=== PATIENT | male | born 1945 | race Caucasian/White ===

== ENCOUNTER 2016-03-23 10:45 | Day surgery (SDC) | payer MEDICARE, OTHER ==
[~2016-03-23] VITALS: Ht 177.8 cm; Wt 63.5 kg
[~2016-03-23 10:45] MED LIST: AMLO2.5T PO; AUGMENTIN 875-1 EACH PO; CARVEDILOL6.25 MG PO; CEFDINIR300 M1 PO; HYCODAN 5MG. TAB5 MG PO; HYDROCHLOROTH12.5 M1 PO; KEFLEX 500MG.500 MG PO; LISINOPRIL 5MG T5 MG PO; METOPROLOL SUCC25 M1 PO; TIOTROPIUM BRO18 MCG IH; VICODIN 5/500 T1 TAB PO
[2016-03-23 11:21] LABS: HEMOGLOBIN 15.7 g/dL (14.1-18.0); LYMPH # 3.9 K/mm3 (0.7-4.5); LYMPH % 38.3 % (10-50)
[2016-03-23 11:25] LABS: BUN 9 mg/dL (7-18)
[2016-03-23 11:27] LABS: GFR (ESTIMATED) 96 ML/MIN (>60)
--- NOTE | 2016-03-23 11:59 | Operative Note ---
Endoscopy Report Date: 03/23/16 Preoperative diagnosis: Abdominal bloating, weight loss Procedure Type of procedure: Total colonoscopy to terminal ileum with snare polypectomy Indications: 70-year-old white male. Referred from Dr. Dale Chan for colonoscopy. He's never had previous colonoscopy. 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 [place] two-month history of "stomach issues ". He often feels full with early satiety. He has a sensation like he has eaten a large meal. He has diminished appetite. The patient undergo CT scan of the abdomen and pelvis which revealed no acute findings. Plan was made to proceed with colonoscopy. Consent was obtained and patient was taken to same-day surgery endoscopy procedure room. He was positioned in a lateral decubitus position. Adequate intravenous sedation was achieved. Variable stiffness Olympus colonoscope was inserted via the anus and advanced to the cecum with some minor difficulty. He did have a floppy tortuous colon. Ileocecal valve and appendiceal orifice were clearly identified. Colonoscope was advanced into the terminal ileum which appeared grossly normal. In the cecum in the periappendiceal location there was a sessile somewhat irregular polyp removed with hot snare. Colonoscope was withdrawn through the colon with careful surveillance carried out. Within the rectum retroflexion was performed which revealed nonpathologic internal hemorrhoids. Colonoscope was withdrawn. Findings: Cecal polyp Tortuous floppy colon Recommendations: Likely plan for follow-up colonoscopy in 5 years pending the pathology. It is possible he may have some degree of gastroparesis. Consideration may be given for gastric emptying scan. at [id number]
[2016-03-23 12:52] VITALS: BP 126/70
== END 2016-03-23 12:35 | disposition home or self-care (01) ==
LOC: SDC 10:45
PROVIDERS: Surgery
PROC: 0DBH8ZX Excision of Cecum, Via Natural or Artificial Opening Endoscopic, Diagnostic (ICD-10-PCS; principal; 2016-03-23 11:00)
DX: R14.0 Abdominal distension (gaseous) (principal); R63.4 Abnormal weight loss; D12.0 Benign neoplasm of cecum

== ENCOUNTER 2016-09-13 16:23 | Inpatient (IN) | payer MEDICARE, OTHER ==
[~2016-09-13] VITALS: Ht 177.8 cm; Wt 55.1 kg
[2016-09-13 16:38] VITALS: BP 146/86
[2016-09-13 16:53] LABS: HEMOGLOBIN 14.7 g/dL (14.1-18.0); LYMPH # 4.1 K/mm3 (0.7-4.5); LYMPH % 33.3 % (10-50)
[2016-09-13 17:02] LABS: URINE BILIRUBIN - DIPSTICK NEGATIVE (NEG); URINE BLOOD TRACE-INTACT (NEG)
--- NOTE | 2016-09-13 17:13 | Emergency Room Report ---
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 N Clinical Suspician of Infection? N Mental Status: 1 - Regular (Normal Baseline) Sepsis Risk:Low Sepsis Risk Have you (or family members/close friends) recently traveled outside the [place]? N If Yes, where/when: Have you had exposure to infectious disease within the past month? TB? Other? Specify: Source patient, RN notes reviewed ALLERGIES Coded Allergies: No Known Allergies (09/13/16) Home Medications Active Scripts Metoprolol Succinate Xl (Metoprolol ER 25MG) 25 MG PO BID #60 TAB Ref 4 Prov: 01/25/15 Hydrochlorothiazide (Hydrochlorothiazide 12.5MG) 12.5 MG PO DAILY #30 CAP Ref 4 Prov: 01/25/15 Tiotropium [place] (Tiotropium [place] 18MCG/Cap Handihaler) 18 MCG IH DAILY #30 INH Ref 4 Prov: 01/25/15 Amlodipine Besylate 2.5 MG PO DAILY #30 TAB Ref 4 Prov: 01/25/15 HYDROCODONE BIT/HOMATROP ME-BR ([place] 5-1.5 MG Tablet) 5 MG PO QIDP PRN cough #15 TAB Prov: 01/25/15 Amoxicillin/Potassium Clav (Augmentin 875-125 Tablet) 1 EACH PO BID #20 TAB Prov: 04/11/15 (Maria Teresa DISLA,Jasmine) History Medical History General CAD? Yes Angina: No [place]: No Hypertension? Yes Hyperlipidemia? Yes CHF? No DVT? No PE? No COPD? Yes Asthma? No Anemia? No GERD? No Gastric ulcers? No GI Bleed? No Hernia? Yes Thyroid Problems? No Hypothyroidism? No CVA? Yes Seizures? No Diabetes? Yes Insulin Dependent: No Insulin Pump: No Home FSBS? No Renal Insuffiency? No End Stage Renal Disease? No UTI? No Stones? No BPH? No GB Disease: No Nephritic Syndrome? No Asplenia? No Hepatitis? No Sickle Cell Disease? No Arthritis? No Migraines? No Cataracts? No Glaucoma? No MRSA? No HIV? No TB? No Anxiety? No Depression? No Cancer? No More? No Immunization Hx Ped.Immunizations UTD Yes DT/Tetanus 04/22/10 Flu Refused Pneumonia Refuses Surgical Hx Previous Surgery?Y R RENAL ARTERIAL STENOSIS INGUINAL HERNIA X2 BACK SX FINGER REATTACHMENT HERNIA REPAIR Family History Family Hx Diabetes No CAD No Hypertension No Hyperlipidemia No Cancer Yes TB No Social History Smoking Hx Smoker: Current Some Day Smoker Tobacco: Yes Type Cigarettes Packs/day < 1 Pack Alcohol Alcohol: No (Maria Teresa DISLA,Jasmine) Review of Systems All Other Systems Reviewed and Negative (Jasmine Morel MD) Physical Exam Vital Signs Vital Signs Date Time Temp Pulse Resp B/P Pulse O2 O2 Flow FiO2 Ox Delivery Rate 09/13 2050 89 18 138/68 94 2 09/14 2019 87 18 130/75 94 2 09/13 1928 101 20 164/74 91 09/13 1852 92 20 148/77 87 09/13 1815 94 16 151/83 94 09/13 1638 97.8 98 18 146/86 95 General Appearance normal appearance, WD/WN, no apparent distress Respiratory Status No: respiratory distress. Lung Sounds bilateral: rhonchi. 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 No Results/Orders Laboratory Tests 09/13/16 1901: ABG pH 7.45, ABG pCO2 (Temp Corrct 45.2 H, ABG pO2 (Temp Correct 51.8 L, ABG HCO3 30.5 H, ABG Total CO2 31.9 H, ABG O2 Sat (Calculated) 86.8 *L, ABG Base Excess 6.5 H, Jr Test ACCEPTABLE 09/13/16 1655: Urine Color YELLOW, Urine Appearance CLEAR, Urine pH 6.0, Ur Specific [place] 1.020, Urine Protein NEGATIVE, Urine Ketones NEGATIVE, Urine Blood TRACE-INTACT, Urine Nitrate NEGATIVE, Urine Bilirubin NEGATIVE, Urine Urobilinogen 0.2, Ur Leukocyte Esterase NEGATIVE, Urine RBC OCC, Urine WBC OCC, Urine Bacteria 2+, Hyaline Casts OCC, Urine Mucus 1+, Urine Glucose NEGATIVE 09/13/16 1649: POC Glucose 162 H 09/13/16 1640: B-Natriuretic Peptide 13 09/13/16 1640: Sodium 139, Potassium 3.4 L, Chloride 99, Carbon Dioxide 33 H, BUN 14, Creatinine 0.9, Estimated Creat Clear 76, Estimated GFR (MDRD) 84, Glucose 144 H, Calcium 9.2, Total Bilirubin 0.2, AST 7 L, ALT 18, Alkaline Phosphatase 145 H, Creatine Kinase 55, CK-MB (CK-2) Rel Index 0.9, CK and CKMB Interp < 0.5, Troponin I < 0.02, Total Protein 7.3, Albumin 3.1 L, Globulin 4.2 H, Albumin/ Globulin Ratio 0.7 L, D-Dimer 639 *H, WBC 12.2 H, RBC 5.10, Hgb 14.7, Hct 44.7 , MCV 87.5, RDW 13.6, Plt Count 644 H, MPV 7.0 L, Gran % 58.6, Gran # 7.2, Lymphocytes % 33.3, Monocytes % 5.2, Eosinophils % 2.4, Basophils % 0.5, Lymphocytes # 4.1, Monocytes # 0.6, Eosinophils # 0.3, Basophils # 0.1, PUBS MCHC 32.8, MCH 28.7 Current Medication Orders Sig/Fredy Start time Last Medication Dose Route Stop Time Status Admin Iopamidol 60 ML ONCE ONE 09/13 2029 UNV 09/13 IV 09/13 Sodium Chloride 40 ML ONCE ONE 09/13 2029 UNV 09/13 IV 09/13 Sodium Chloride 10 ML PRN PRN 09/13 1645 AC IV 09/14 1642 Orders Procedure Date/time Status DIET-NOTHING BY MOUTH 09/14 B Active DIET-NOTHING BY MOUTH 09/13 D Complete CULTURE, BLOOD 09/13 2110 Active LACTIC ACID 09/13 2110 Active CTA-CHEST 09/[address] CHEST W/PE PROTOCOL REQ 09/13 192 Complete D-DIMER 09/13 1844 Complete ARTERIAL BLOOD GAS REQUEST 09/[address] HEAD W/O CONTRAST 09/[address] ABD & PELVIS W/O CONTRAST 09/13 1655 Active CULTURE, URINE 09/13 1655 Active FINGERSTICK BLOOD SUGAR 09/13 1649 Complete 12 LEAD EKG-REYNOLD (INITIAL) 09/13 164 Active ELECTROCARDIOGRAM REQUEST 09/13 1644 Active URINALYSIS/COMPLETE 09/13 1644 Complete BRAIN NATRIURETIC PEPTIDE 09/[address] HEAD REQ 09/[address] ABD/PELVIS REQ 09/13 1643 Complete CHEST-AP VIEW ONLY 09/13 164 Active IV SALINE LOCK 09/13 164 Active CBC WITH AUTO DIFF 09/13 164 Complete CARDIAC ENZYMES 09/13 164 Complete CHEM 12 PROFILE 09/13 164 Complete XRAY/CT/US XRAY/CT/US CT head CT interpretation by discussed w/radiologist Time results known: 1843 CT Results normal/NAD, Mild to moderate ventriculomegaly...can not rule out NPH (Jasmine Morel MD) Departure Departure Time of Disposition 1950 Disposition Still a Patient Condition STABLE Additional Instructions Discussed with Dr. Chan and he wants to get CTA Chest to rule out PE and his D -dimer is >[address] Ardon after CTA chest comes back Discharge Counseling Counseled pt/family regarding diagnosis, test results, follow up needs ED Critical Care Critical Care No If Critical Care minutes are documented, the time involved in the performance of seperately reportable procedures was not counted toward critical care time documented. I directly delivered medical care to this critically ill and/or injured patient. Timely evaluation and treatment was necessary to address the significant organ system(s) dysfunction present in this patient. (Jasmine Morel MD) Departure Clinical Impression Primary Impression: Acute and chronic respiratory failure with hypoxia Secondary Impressions: CAP (community acquired pneumonia) COPD (chronic obstructive pulmonary disease) Qualifiers: COPD type: COPD with acute lower respiratory infection Qualified Code: J44.0 - Chronic obstructive pulmonary disease with acute lower respiratory infection Referrals Ellie Chan MD (Family) discussed with dr chan (Bela Ardon MD) at 1953 at 2116
[2016-09-13 17:14] LABS: BUN 14 mg/dL (7-18)
[2016-09-13 17:15] LABS: GFR (ESTIMATED) 84 ML/MIN (>60)
[2016-09-13 19:05] LABS: ARTERIAL ABE 6.5 MMOL/L (-2.4-+2.3); ARTERIAL PO2 51.8 MMHG (80-100); ARTERIAL TCO2 31.9 MMOL/L (23-27)
[2016-09-13 19:06] LABS: ALLEN'S TEST ACCEPTABLE; OXYGEN ROOM AIR
--- OUTSIDE RECORDS SUMMARY | 2016-09-13 21:27 | External Medical Summary Rpt ---
Author Author , Organization [employer] Address Unknown Phone Unavailable Purpose Continuity of Care Document - through 2016 Problems Code Diagnosis DOS Provider Status J96.21 ACUTE AND CHRONIC RESPIRATORY FAILURE WITH HYPOXIA
--- OUTSIDE RECORDS SUMMARY | 2016-09-13 21:27 | External Medical Summary Rpt ---
Demographics Preferred Language German Marital Status Unknown Lutheran Affiliation Unknown Race Unknown Ethnic Group Unknown Author Author , Organization [employer] Address Unknown Phone Unavailable Purpose Continuity of Care Document - through 2016 Immunization No patient found.
--- OUTSIDE RECORDS SUMMARY | 2016-09-13 21:27 | External Medical Summary Rpt ---
Author Author [employer] Organization [employer] Address Unknown Phone Unavailable Purpose Continuity of Care Document - through 2016
--- OUTSIDE RECORDS SUMMARY | 2016-09-13 21:27 | External Medical Summary Rpt ---
Demographics Preferred Language Luxembourger Marital Status Unknown Anabaptism Affiliation Unknown Race Unknown Ethnic Group Unknown Author Author , Organization [employer] Address Unknown Phone Unavailable Purpose Continuity of Care Document - through 2016 Immunization No patient found.
--- NOTE | 2016-09-13 22:05 | RADIOLOGY REPORT PS360 ---
CHEST-AP VIEW ONLY HISTORY: Shortness of breath WEAKNESS ORDERING PHYSICIAN: Bela Ardon MD PATIENT AGE: 70 years COMPARISON: 01/26/2016 FINDINGS: Normal heart size. Pulmonary arterial tree is somewhat prominent and may be related to pulmonary arterial hypertension. There is mild hyperinflation with attenuation of the peripheral pulmonary vessels consistent with COPD. There is some mild nodularity in the right lower lung zone nonspecific. No effusions. No acute bony anomalies. IMPRESSION: 1. COPD with suspected pulmonary arterial hypertension. 2. Nonspecific parenchymal opacity right infrahilar region possibly related to pneumonia. Consider chest CT for further evaluation. Pulmonary nodule not excluded.
[2016-09-13 22:12] VITALS: BP 166/80
--- NOTE | 2016-09-13 22:21 | RADIOLOGY REPORT PS360 ---
CT HEAD W/O CONTRAST HISTORY: Weakness WEAKNESS ORDERING PHYSICIAN: Bela Ardon MD PATIENT AGE: 70 years COMPARISON: 04/09/2015 TECHNIQUE: Axial images obtained without contrast. Brain and bone windows reviewed. FINDINGS: No midline shift, mass effect, intracranial hemorrhage, hydrocephalus, or extra-axial fluid collection is evident. There is mild generalized atrophy with patchy chronic white matter microvascular ischemic changes. There are some periventricular encephalomalacia changes in the left parietal lobe unchanged. The calvarium has an unremarkable appearance. No mastoid effusion. Mild mucosal thickening left sphenoid sinus. IMPRESSION: 1. Atrophy with chronic ischemic changes. 2. No acute intracranial pathology.
[2016-09-13 22:26] VITALS: BP 166/80
[2016-09-13] MEDS ORDERED: ATORVASTATIN CA40 MG PO (22:36)
[2016-09-13] MEDS ORDERED: METFORMIN 500M500 M1 PO (22:38)
[2016-09-13] MEDS ORDERED: OMEPRAZOLE40 MG PO (22:38)
[2016-09-13] MEDS ORDERED: GABAPENTIN300 M1 PO (22:39)
[2016-09-13] MEDS ORDERED: AMLO5TAB PO (22:39)
[2016-09-13] MEDS ORDERED: PROBIOTIC1 EAC5 PO (22:40)
[2016-09-13] MEDS ORDERED: ASPIRIN 325MG325 MG PO (22:41)
[2016-09-13] MEDS ORDERED: COQ-10100 MG PO (22:42)
[2016-09-14] VITALS (7 sets, daily range): BP systolic 119–161; BP diastolic 53–64
[2016-09-14 06:52] LABS: HEMOGLOBIN 13.6 g/dL (14.1-18.0); LYMPH # 1.6 K/mm3 (0.7-4.5); LYMPH % 17.5 % (10-50)
--- NOTE | 2016-09-14 06:59 | PHARMACY CLINIC NOTE ---
Patient Demographics Patient Demographics Admission date: 09/13/16 Date: 09/14/16 Time: 0659 Allergies Coded Allergies: No Known Allergies (09/13/16) HEIGHT- FT: 5 IN: 10.00 K.112 VTE General Information Labs: Laboratory Tests 09/13 1640 Hematology Hgb (14.1 - 18.0 g/dL) 14.7 Hct (42.0 - 52.0 %) 44.7 Plt Count (142 - 424 K/mm3) 644 H Disclaimer The following section includes nursing documentation that has been pulled in for pharmacy review. Patient's VTE score: 1 Patient's VTE Risk: VERY LOW RISK Clinical trial participant? No VTE prophylaxis NQF [id number] VTE prophylaxis ordered? Yes Type of prophylaxis/treatment: RANGEL at 0659
--- NOTE | 2016-09-14 08:16 | RADIOLOGY REPORT PS360 ---
CT ABD PELVIS W/O CONTRAST CLINICAL INDICATION: Generalized abdominal pain WEAKNESS ORDERING PHYSICIAN: Bela Ardon MD PATIENT AGE: 70 years COMPARISON: 01/30/2016 TECHNIQUE: Axial images obtained with sagittal and coronal reformats. PROCEDURE: Oral Contrast: None IV Contrast: None . FINDINGS: Lower thorax: Please see chest CT report for further description of lower chest Abdomen: The liver, spleen, adrenal glands, pancreas, gallbladder, and kidneys have an unremarkable unenhanced CT appearance. There is a moderate amount retained colonic feces. No intestinal obstruction or free air is evident. There are few scattered small bowel abscess which appears somewhat thickened in the pelvis. Enteritis is considered. Chronic changes present in the right inguinal region not significantly changed and may be due to prior surgery. Small area of sclerosis involves the left ilium at the SI joint on the left. IMPRESSION: 1. No acute intra-abdominal or pelvic pathology apparent. 2. Nonacute findings as described above
--- NOTE | 2016-09-14 08:25 | RADIOLOGY REPORT PS360 ---
CTA-CHEST HISTORY: Shortness of breath, elevated d-dimer SOA ORDERING PHYSICIAN: Bela Ardon MD PATIENT AGE: 70 years TECHNIQUE: Helical acquisition obtained following the bolus administration of 60 mL of Isovue 370 followed by a saline bolus. Axial, sagittal, and coronal reformatted images are generated and reviewed. COMPARISON: 01/20/2015 FINDINGS: No evidence of pulmonary embolus. No evidence of aortic aneurysm or dissection. There is intimal thickening coronary artery calcifications are present. Normal heart size. No obvious pericardial effusion. There are moderate centrilobular emphysematous changes with hyperinflation and bronchial thickening. There are multiple new reticulonodular spiculated nodular airspace opacity scattered through the right lung involving both right upper, right right middle, and right lower lobe. A new coalescent masslike density is noted in the posterior medial right lung base abutting the spine measuring 3.8 cm. This has developed since the previous exam. This could be due to densely opacified lung. Pulmonary mass/neoplasm is not excluded. No effusions. Few scattered small lymph nodes are present in the mediastinum slightly prominent measuring up to 1.3 x 1.2 cm in the left paratracheal region. IMPRESSION: 1. No obvious pulmonary metastases or aortic aneurysm or dissection. 2. Multiple new reticular airspace opacities in the right lung including colitis masslike lesion in the right lower lobe medially. This is probably related to pneumonia. Neoplasm however is not excluded. Therefore, follow-up is recommended following adequate treatment for pneumonia. 3. Emphysema. 4. Coronary artery disease
--- NOTE | 2016-09-14 08:53 | HISTORY AND PHYSICAL REPORT ---
See Addendum History and Physical ([facility]) Date of admission: 09/13/16 Chief complaint: Shortness of air History: History of Present Illness: Mr. Lin is a 70 year old white male with a history of COPD, CVA, Type 2 DM, HTN, and HLP who presented to [facility] ED with progressive shortness of breath, impaired cognition, and headache. Due to his previous CVA, his family felt he needed further evaluation and was brought to the ED. He had not been eating or drinking well for the past 3 months. Patient was noted to have been treated at [facility] and urgent care for Bronchitis with Amoxicillin and Zithromax and 2 courses of steroids. He denies fever, cough, and chest pain. Evaluation in the ED included a CTA due to elevated D-Dimer- negative for PE but showed a possible atypical pneumonia. Due to his failure with outpatient treatment, he was admitted for further evaluation and treatment. This AM he reports he feels somewhat better. He was able to get some sleep and ate most of his breakfast. He has ambulated and voided. He denies cough, headache, or impaired cognition at this time. He remains afebrile. Past Medical History: Medical History: CAD? Yes Angina: No [place]: No Hypertension? Yes Hyperlipidemia? Yes CHF? No DVT? No PE? No COPD? Yes Asthma? No Anemia? No GERD? No Gastric ulcers? No GI Bleed? No Hernia? Yes Thyroid Problems? No Hypothyroidism? No CVA? Yes Seizures? No Diabetes? Yes Insulin Dependent: No Insulin Pump: No Home FSBS? No Renal Insuffiency? No UTI? No Stones? No BPH? No GB Disease: No Nephritic Syndrome? No Asplenia? No Hepatitis? No Sickle Cell Disease? No Arthritis? No Migraines? No Cataracts? No Glaucoma? No MRSA? No HIV? No TB? No Anxiety? No Depression? Yes Cancer? No More? No Surgical history: Previous Surgery?Y R RENAL ARTERIAL STENOSIS INGUINAL HERNIA X2 BACK SX FINGER REATTACHMENT HERNIA REPAIR Medications: Active Scripts Hydrochlorothiazide (Hydrochlorothiazide 12.5MG) 12.5 MG PO DAILY #30 CAP Ref 4 Prov: 01/25/15 Reported Medications Gabapentin 300 MG PO TID #90 CAPSULE Atorvastatin Calcium 40 MG PO DAILY #30 Omeprazole (Omeprazole 40MG) 40 MG PO DAILY #30 Metformin HCl (Metformin) 500 MG PO BID #60 Amlodipine Besylate (Amlodipine) 5 MG PO DAILY #30 Bacillus Coagulans (Probiotic) 1 EACH PO DAILY ASPIRIN (Aspirin 325MG) 325 MG PO DAILY Ubidecarenone (Coq-10) 100 MG PO DAILY Allergies: Coded Allergies: No Known Allergies (09/13/16) Family History: Family history: Postive for: DM, cancer. Negative for: stroke. Additional family history: All brothers and sisters have DM. 2 sisters have breast ca, mother had colon ca , father had stomach ca Social History: Smoking Hx Tobacco: Yes Smoker: Current Some Day Smoker (Pt has been cutting back) Type: Cigarettes Packs/day: < 1 Pack Are you exposed to second hand Yes Alcohol: Alcohol: No Hx of Drug Use: Drug Use? No Patien't marital status is: Patient's support system is: good Review of Systems: Patient unresponsive? No Constitutional Positive for: recent weight loss. No: chills, fatigue. ENT No: ear ache, mouth pain, sore throat. Cardiovascular Positive for: chest pain (Brief intermittant sharp CP). No: edema, palpitations. Respiratory Positive for: shortness of air, pneumonia. No: non-productive, productive cough (sputum), wheezing. GI Positive for: abdominal pain, anorexia. No: GERD, constipation, diarrhea, hematemeis, hematochezia, melena, nausea, vomitting. (male) No: frequency. Skin No: diaphoresis, swelling. Neurological Positive for: gait problem, numbness (Residual parathesia/ gait- CVA). No: bowel dysfunction, confusion, dizziness, seizure, slurred speech, unable to speak, syncope. Musculoskeletal No: myalgias. Psychiatric Positive for: depression. Physical Exam: Vital signs: 1ST Vital Signs Result Date Time Pulse Ox 95 09/13 1638 B/P 146/86 09/13 1638 Temp 97.8 09/13 1638 Pulse 98 09/13 1638 Resp 18 09/13 1638 O2 Flow Rate 2 09/14 2019 O2 Delivery ROOM AIR 09/13 2212 Exam: General appearance: alert, face symmetric, no acute distress, thin Eyes: anicteric, conjunctiva clear, PERRLA ENT: mucous membranes moist (poor dentition ) Neck: normal inspection, non-tender, no carotid bruit, no JVD, full range of motion, lymphadenopathy (absent), thyroid (normal) Cardiovascular: no ectopics, regular rate & rhythm, no murmur, normal peripheral pulses Respiratory: no respiratory distress, trachea midline, diminished breath sounds (posterior), Breath sounds diminished throughout- worse on left side. Fine crackles bilaterally in the bases. No wheezing or rhonchi ABD: non-distended, no rebound, soft, no tenderness, no guarding, no organomegaly, no palpable mass, bowel sounds present, flat Extremities: normal capillary refill, no peripheral edema, warm, pedal pulses (normal), no calf tenderness, decreased sensation on the right lower extremity Skin: dry, intact, normal color Neuro: alert, normal mood/affect, oriented Lab data: Labs: Laboratory Tests 09/14/16 0635: Sodium 140, Potassium 3.7, Chloride 102, Carbon Dioxide 31, BUN 15, Creatinine 0.8, Estimated Creat Clear 69, Estimated GFR (MDRD) 96, Glucose 246 H, Calcium 9.1, WBC 9.1, RBC 4.69, Hgb 13.6 L, Hct 40.9 L, MCV 87.2, RDW 13.5, Plt Count 577 H, MPV 6.9 L, Gran % 81.5 H, Gran # 7.4, Lymphocytes % 17.5, Monocytes % 0.7 L, Eosinophils % 0.2, Basophils % 0.1, Lymphocytes # 1.6, Monocytes # 0.1, Eosinophils # 0.0, Basophils # 0.0, PUBS MCHC 33.3, MCH 29.0 09/14/16 0628: POC Glucose 239 H 09/13/16 2125: Lactic Acid 1.0 09/13/16 1901: ABG pH 7.45, ABG pCO2 (Temp Corrct 45.2 H, ABG pO2 (Temp Correct 51.8 L, ABG HCO3 30.5 H, ABG Total CO2 31.9 H, ABG O2 Sat (Calculated) 86.8 *L, ABG Base Excess 6.5 H, Jr Test ACCEPTABLE 09/13/16 1655: Urine Color YELLOW, Urine Appearance CLEAR, Urine pH 6.0, Ur Specific [place] 1.020, Urine Protein NEGATIVE, Urine Ketones NEGATIVE, Urine Blood TRACE-INTACT, Urine Nitrate NEGATIVE, Urine Bilirubin NEGATIVE, Urine Urobilinogen 0.2, Ur Leukocyte Esterase NEGATIVE, Urine RBC OCC, Urine WBC OCC, Urine Bacteria 2+, Hyaline Casts OCC, Urine Mucus 1+, Urine Glucose NEGATIVE 09/13/16 1649: POC Glucose 162 H 09/13/16 1640: B-Natriuretic Peptide 13 09/13/16 1640: Sodium 139, Potassium 3.4 L, Chloride 99, Carbon Dioxide 33 H, BUN 14, Creatinine 0.9, Estimated Creat Clear 76, Estimated GFR (MDRD) 84, Glucose 144 H, Calcium 9.2, Total Bilirubin 0.2, AST 7 L, ALT 18, Alkaline Phosphatase 145 H, Creatine Kinase 55, CK-MB (CK-2) Rel Index 0.9, CK and CKMB Interp < 0.5, Troponin I < 0.02, Total Protein 7.3, Albumin 3.1 L, Globulin 4.2 H, Albumin/ Globulin Ratio 0.7 L, D-Dimer 639 *H, WBC 12.2 H, RBC 5.10, Hgb 14.7, Hct 44.7 , MCV 87.5, RDW 13.6, Plt Count 644 H, MPV 7.0 L, Gran % 58.6, Gran # 7.2, Lymphocytes % 33.3, Monocytes % 5.2, Eosinophils % 2.4, Basophils % 0.5, Lymphocytes # 4.1, Monocytes # 0.6, Eosinophils # 0.3, Basophils # 0.1, PUBS MCHC 32.8, MCH 28.7 Microbiology 09/13 2124 BLOOD: Anaerobic Blood Culture - RECD 09/13 2124 BLOOD: Aerobic Blood Culture - RECD 09/13 2124 BLOOD: Anaerobic Blood Culture - RECD 09/13 2124 BLOOD: Aerobic Blood Culture - RECD 09/13 1654 URINE CC: Urine Culture - RES Radiology results: Results: CTA: IMPRESSION: 1. No obvious pulmonary metastases or aortic aneurysm or dissection. 2. Multiple new reticular airspace opacities in the right lung including colitis masslike lesion in the right lower lobe medially. This is probably related to pneumonia. Neoplasm however is not excluded. Therefore, follow-up is recommended following adequate treatment for pneumonia. 3. Emphysema. 4. Coronary artery disease CT ABD: IMPRESSION: 1. No acute intra-abdominal or pelvic pathology apparent. 2. Nonacute findings as described above CT Head: IMPRESSION: 1. Atrophy with chronic ischemic changes. 2. No acute intracranial pathology. CXR IMPRESSION: 1. COPD with suspected pulmonary arterial hypertension. 2. Nonspecific parenchymal opacity right infrahilar region possibly related to pneumonia. Consider chest CT for further evaluation. Pulmonary nodule not excluded. Diagnosis(es): 1. Old cerebrovascular accident (CVA) without late effect Status: Chronic 2. COPD exacerbation Status: Acute 3. Hypertension Status: Chronic 4. Headache Status: Resolved 5. CAP (community acquired pneumonia) Status: Acute 6. COPD (chronic obstructive pulmonary disease) Status: Chronic 7. Diabetes mellitus Plan: Continue abx, nebs, steroids, sliding scale insulin, and PRN O2. Will restart some of his home meds. Repeat labs in AM. at 0853 at 0826
[2016-09-14] MEDS ORDERED: ACETAMINOPHEN500 M3 PO (10:36)
[2016-09-14] MEDS ORDERED: HYDROCHLOROTH12.5 M1 PO (10:40)
[2016-09-15] VITALS (8 sets, daily range): BP systolic 120–145; BP diastolic 53–71
[2016-09-15 07:16] LABS: HEMOGLOBIN 13.1 g/dL (14.1-18.0); LYMPH # 2.3 K/mm3 (0.7-4.5); LYMPH % 8.6 % (10-50)
[2016-09-15 07:46] LABS: NEUTROPHILS 84 % (42-76)
--- NOTE | 2016-09-15 09:20 | ACUTE CARE PROGRESS NOTE (QUA) ---
Progress Notes Subjective Date 09/15/16 Time 0915 Note Patient is feeling the same this AM. He denies CP and SOB. He has minimal cough. He is eating as usual. He slept about 5 hours; he has been OOB without problems.. WBC has increased to 26.5 this AM. This is felt to be due to the [facility] Objective Findings Laboratory Tests 09/15/16 0637: POC Glucose 237 H 09/15/16 0630: Sodium 142, Potassium 4.2, Chloride 105, Carbon Dioxide 33 H, BUN 14, Creatinine 0.7 L, Estimated Creat Clear 79, Estimated GFR (MDRD) 112, Glucose 230 H, Calcium 9.3, WBC 26.5 *H, RBC 4.55 L, Hgb 13.1 L, Hct 40.5 L, MCV 88.9, RDW 13.7, Plt Count 609 H, MPV 7.0 L, Gran % 88.1 H, Gran # 23.3 H, Total Counted 100, Lymphocytes % 8.6 L, Monocytes % 3.1, Eosinophils % 0.1, Basophils % 0.1, Neutrophils 84 H, Band Neutrophils 4, Lymphocytes (Manual) 8 L, Lymphocytes # 2.3, Monocytes (Manual) 2, Monocytes # 0.8, Eosinophils # 0.0, Basophils # 0.0, Atypical Lymphocytes 2, Platelet Estimate MOD INCREASE, PUBS MCHC 32.4, MCH 28.8 09/14/16 2039: POC Glucose 328 *H 09/14/16 1659: POC Glucose 312 *H 09/14/16 1214: POC Glucose 277 H Vital Signs Date Time Temp Pulse Resp B/P Pulse O2 O2 Flow FiO2 Ox Delivery Rate 09/15 0804 98.6 81 16 121/71 95 09/15 0800 97.9 69 18 120/56 97 ROOM AIR 09/15 0553 2 09/15 0553 95 ROOM AIR 09/15 0400 98.6 81 16 121/71 91 ROOM AIR 09/15 0322 93 ROOM AIR 09/15 0030 97.5 75 18 126/65 92 ROOM AIR 09/14 2048 97.6 89 16 161/63 92 09/144 2 09/14 2004 97.6 89 16 161/63 92 ROOM AIR 09/14 1738 97.6 69 16 119/54 97 ROOM AIR 09/14 1225 98.4 70 16 123/62 92 ROOM AIR 09/14 1014 2 09/14 0959 98.0 92 16 136/53 96 2 Current Medications Acetaminophen 0 .STK-MED ONE PO (DC) Azithromycin 500 MG 2100 IV Sodium Chloride 250 ML Patient Own Medication 1 UNIT QHS PO Insulin Human [rDNA origin] 0 .STK-MED ONE SC (DC) Insulin Human [rDNA origin] 0 .STK-MED ONE SC (DC) Ceftriaxone Sodium 1 GM 1300 IV Sodium Chloride 50 ML Insulin Human [rDNA origin] 0 .STK-MED ONE SC (DC) Sodium Chloride 10 ML PRN PRN IV Patient Own Medication 1 UNIT TID PO Patient Own Medication 1 UNIT DAILY PO Patient Own Medication 1 UNIT DAILY PO Tuberculin 0 .STK-MED ONE .ROUTE (DC) Amlodipine Besylate 2.5 MG DAILY PO (DC) Aspirin 325 MG DAILY PO (DC) Atorvastatin Calcium 40 MG DAILY PO (DC) Gabapentin 300 MG TID PO (DC) Metoprolol Tartrate 25 MG BID PO Polyethylene Glycol 17 GM DAILY PO Diagnostic Test (Pha) 1 EACH W/MEALS&HS FS Insulin Human [rDNA origin] SEE ADMIN CRITERIA FOR LOW INTENSITY SS W/MEALS&HS SC Methylprednisolone Sodium Succinate 60 MG Q8 IV Albuterol 2.5 MG Q6H6 INH Acetaminophen 650 MG Q4HP PRN PO Nicotine 21 MG DAILYP PRN TD Ondansetron HCl 4 MG Q6HP PRN IV Sodium Chloride 1,000 ML .Q20H IV Sodium Chloride 10 ML PRN PRN IV (DC) 09/14 1500 09/14 2300 09/15 0700 Intake Total 420 180 Output Total Balance 420 180 Intake, Oral 420 180 Last VS-Temp:98.6 B/P:121/71 Pulse:81 Resp:16 SaO2:95 ROOM AIR Last weight lbs:121 oz:8 K.112 Method:Bed Scales Exam General appearance: alert, no acute distress, thin Cardiovascular: regular rate & rhythm Respiratory: diminished BS posteriorly with crackles on the left ABD: soft, no tenderness, bowel sounds present, flat Extremities: normal capillary refill, no peripheral edema Skin: dry, warm Neuro: alert, oriented Assessment/Plan Problem List 1. Old cerebrovascular accident (CVA) without late effect Status: Chronic 2. COPD exacerbation Status: Acute 3. Hypertension Status: Chronic 4. Headache Status: Resolved 5. CAP (community acquired pneumonia) Status: Acute 6. COPD (chronic obstructive pulmonary disease) Status: Chronic 7. Diabetes mellitus Patient condition Improving Plan: continue current care, will repeat CXR today; decrease steriods This inpt stay is expected to cross 2 MNs from start of care Yes at 0920
--- NOTE | 2016-09-15 11:26 | RADIOLOGY REPORT PS360 ---
CHEST(2 VIEWS-NOT PORTABLE) HISTORY: Shortness of breath, tobacco use, follow-up abnormal radiograph possible pneumonia ORDERING PHYSICIAN: Ellie Chan MD PATIENT AGE: 70 years COMPARISON: 09/13/2016 FINDINGS: The cardiomediastinal silhouette and pulmonary vascularity are within normal limits. Previously described patchy density in the right infrahilar region has shown improvement consistent with resolving pneumonia and/or atelectatic change. There is hyperinflation with attenuation of the peripheral pulmonary vessels consistent with obstructive chronic bronchitis. A faint nodular opacity overlies the left.. Probably related to nipple shadow. The remaining lungs are clear.. No acute bony abnormalities. IMPRESSION: COPD, resolution of right infrahilar airspace disease
--- NOTE | 2016-09-15 17:40 | ACUTE CARE PROGRESS NOTE (QUA) ---
Progress Notes Subjective Date 09/15/16 Time 1738 Patient/family reports: feeling better Objective Findings Last VS-Temp:97.8 B/P:140/63 Pulse:72 Resp:18 SaO2:92 ROOM AIR Last weight lbs:121 oz:8 K.112 Method:Bed Scales CXR shows improvement. See report. Assessment/Plan Problem List 1. Old cerebrovascular accident (CVA) without late effect Status: Chronic 2. COPD exacerbation Status: Acute 3. Hypertension Status: Chronic 4. Headache Status: Resolved 5. CAP (community acquired pneumonia) Status: Acute 6. COPD (chronic obstructive pulmonary disease) Status: Chronic 7. Diabetes mellitus Plan: continue current care This inpt stay is expected to cross 2 MNs from start of care Yes at 1740
[2016-09-16 00:09] VITALS: BP 123/62
[2016-09-16 04:00] VITALS: BP 133/78
[2016-09-16 08:00] VITALS: BP 130/51
--- NOTE | 2016-09-16 08:30 | ACUTE CARE PROGRESS NOTE (QUA) ---
See Addendum Progress Notes Subjective Date 09/16/16 Time 0819 Note Pt reports feeling somewhat better today. He denies CP or SOB, has only minimal cough. He has been up and about without difficulty. He is eating well. He inquires as to the results of his CXR yesterday. Objective Findings Last VS-Temp:97.8 B/P:133/78 Pulse:66 Resp:20 SaO2:95 OXYGEN Last weight lbs:121 oz:8 K.112 Method:Bed Scales 09/15/16 CXR: COPD, resolution of right infrahilar airspace disease. Exam General appearance: alert, awake, no acute distress Cardiovascular: regular rate & rhythm, normal peripheral pulses Respiratory: generally diminished with faint bibasilar wheezes ABD: non-distended, soft, no tenderness, bowel sounds present Extremities: full range of motion, no peripheral edema, no calf tenderness Skin: dry, intact, warm Neuro: alert, oriented, no focal deficit Reviewed: vital signs, lab results, radiology report Assessment/Plan Problem List 1. Old cerebrovascular accident (CVA) without late effect Status: Chronic 2. COPD exacerbation Status: Acute 3. Hypertension Status: Chronic 4. Headache Status: Resolved 5. CAP (community acquired pneumonia) Status: Acute 6. COPD (chronic obstructive pulmonary disease) Status: Chronic 7. Diabetes mellitus Patient condition Improving Plan: Pt continues to gradually improve. CXR is improved. Possible d/c home today. This inpt stay is expected to cross 2 MNs from start of care Yes at 0830 at 0955
[2016-09-16 09:37] VITALS: BP 130/51
[2016-09-16] MEDS ORDERED: LOPRESSOR 25MG.25 MG PO (10:18)
[2016-09-16] MEDS ORDERED: OMNICEF 300 MG300 MG PO (10:19)
== END 2016-09-16 12:00 | disposition home or self-care (01) | DRG 195 ==
LOC: ER 16:23 → 2ND 21:24
PROVIDERS: Emergency Medicine; Family Medicine; General Practice
DX: J18.9 Pneumonia, unspecified organism (principal); J44.9 Chronic obstructive pulmonary disease, unspecified; I10 Essential (primary) hypertension; E11.9 Type 2 diabetes mellitus without complications; Z72.0 Tobacco use; Z86.73 Personal history of transient ischemic attack (TIA), and cerebral infarction without residual deficits
CPT/HCPCS: G0378; J0456; Q9967

== ENCOUNTER → 2016-11-05 | Outpatient (CLI) | payer MEDICARE, OTHER ==
[~2016-11-05] MED LIST changes: +ACETAMINOPHEN500 M3 PO; +AMLO5TAB PO; +ASPIRIN 325MG325 MG PO; +ATORVASTATIN CA40 MG PO; +COQ-10100 MG PO; +GABAPENTIN300 M1 PO; +LOPRESSOR 25MG.25 MG PO; +METFORMIN 500M500 M1 PO; +OMEPRAZOLE40 MG PO; +OMNICEF 300 MG300 MG PO; +PROBIOTIC1 EAC5 PO
[2016-11-05 08:54] LABS: BUN 12 mg/dL (7-18)
[2016-11-05 08:56] LABS: GFR (ESTIMATED) 84 ML/MIN (>60)
== END ==
LOC: LAB 08:27
PROVIDERS: Family Medicine
DX: R93.8 Abnormal findings on diagnostic imaging of other specified body structures (principal)

== ENCOUNTER 2016-12-29 10:35 | Day surgery (SDC) | payer MEDICARE, OTHER ==
[2016-12-29 17:14] VITALS: BP 117/74
--- NOTE | 2016-12-30 12:25 | Operative Note ---
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 The eyes were protected with Steri-Strips. The perilesional area was infiltrated with a total of 5 mL of 2 percent lidocaine containing epinephrine. The lesion on the LEFT cheek was mobilized. And removed in entirety. It extended well into the subcutaneous layer. It was submitted for routine histopathology. Bleeding was stopped with bipolar cautery send a tissue rearrangement geometric plastic repair was done with interrupted 5-0 Vicryl and 5-0 nylon. A Dermabond dressing was applied. There was an ulcerated lesion involving the nasal tip and extending to the nasal vestibule on the LEFT side. The lesion was marked out and the markup was incised and the lesion was excised to the level of the lower lateral cartilage of the nose. The specimen was oriented and submitted for frozen section analysis. Frozen section report was that the margins were all clear. And the patient had a ulcerative lesion which will require further investigation. Accordingly, flaps were elevated and a geometric plastic repair was done with interrupted 5-0 Vicryl and 5-0 nylon sutures. A Dermabond dressing was applied and the patient was sent to recovery in good general condition. EBL (ml): 2 Specimens obtained: Same as above at 1225
== END 2016-12-29 16:30 | disposition home or self-care (01) ==
LOC: SDC 10:35
PROVIDERS: Otolaryngology
PROC: 0HB1XZX Excision of Face Skin, External Approach, Diagnostic (ICD-10-PCS; 2016-12-29)
PROC: 0HB1XZX Excision of Face Skin, External Approach, Diagnostic (ICD-10-PCS; principal; 2016-12-29 12:00)
DX: C44.301 Unspecified malignant neoplasm of skin of nose (principal); C44.309 Unspecified malignant neoplasm of skin of other parts of face; E11.9 Type 2 diabetes mellitus without complications; I10 Essential (primary) hypertension

== ENCOUNTER 2017-02-21 12:46 | Emergency (ER) | payer MEDICARE, OTHER ==
[~2017-02-21] VITALS: Ht 175.3 cm; Wt 59.0 kg
--- OUTSIDE RECORDS SUMMARY | 2017-02-21 12:57 | External Medical Summary Rpt | CCD ---
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 Results Labs Lab Lab Date Result Refere Interp Status Commen Order Detail nces retati t Range on Glucose capillary blood glucometer (12-29-2016 11:15) Glucose = 118 70-110 complet 017 mg/dl ed capilla 11:[address] Differential panel, method unspecified - (09-15-2016 06:30) LYMPH 8 % 10% - Low complet 017 50% ed 06:30 Platele MOD complet ts 017 INCREAS ed [Presen 06:30 E ce] in Blood by Light microsc opy Gas panel in Arterial blood (09-13-2016 19:01) Arteria ACCEPTA complet l 017 BLE ed patency 19:01 Wrist artery --pre arteria l punctur e Urinalysis dipstick W Reflex Microscopic panel in Urine (09-13-2016 16:55) Bacteri 2+ O complet a 017 ed [Presen 16:55 ce] in Urine sedimen t by Light microsc opy Hyaline OCC NONE complet casts 017 ed [Presen 16:55 ce] in Urine sedimen t by Light microsc opy Mucus 1+ NONE complet [Presen 017 ed ce] in 16:55 Urine sedimen t by Light microsc opy Erythro OCC 0 complet cytes 017 ed [Presen 16:55 ce] in Urine sedimen t by Light microsc opy Urinalysis dipstick W Reflex Microscopic panel in Urine (09-13-2016 16:55) Appeara CLEAR CLEAR complet nce of 017 ed Urine 16:55 Bilirub NEGATIV NEG complet in 017 E ed [Presen 16:55 ce] in Urine by Test strip Erythro TRACE-I NEG complet cytes 017 NTACT ed [Presen 16:55 ce] in Urine Color YELLOW YELLOW complet of 017 ed Urine 16:55 Ketones NEGATIV NEG complet 017 E ed [Presen 16:55 ce] in Urine by Automat ed test strip Mucus NEGATIV NEG complet [Presen 017 E ed ce] in 16:55 Urine sedimen t by Light microsc opy Nitrite NEGATIV NEG complet 017 E ed [Presen 16:55 ce] in Urine by Test strip Urobili 0.2 NEG complet nogen 017 ed [Presen 16:55 ce] in Urine by Test strip
--- OUTSIDE RECORDS SUMMARY | 2017-02-21 12:57 | External Medical Summary Rpt | CCD ---
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
--- OUTSIDE RECORDS SUMMARY | 2017-02-21 12:58 | External Medical Summary Rpt | CCD ---
Demographics Preferred Language Turkmen Marital Status Unknown Caodaism Affiliation Unknown Race Unknown Ethnic Group Unknown Author Author , PRITESH JONAS Address Unknown Phone Immunization No patient found.
--- OUTSIDE RECORDS SUMMARY | 2017-02-21 12:58 | External Medical Summary Rpt | CCD ---
Demographics Preferred Language Hebrew Marital Status Unknown Moravian Affiliation Unknown Race Unknown Ethnic Group Unknown Author Author , PRITESH JONAS Address Unknown Phone Immunization No patient found.
--- OUTSIDE RECORDS SUMMARY | 2017-02-21 12:59 | External Medical Summary Rpt ---
Author Author [employer], [employer] Organization [employer] Address Unknown Phone Unavailable Results Glucose [Mass/volume] in Capillary blood by Glucometer Observa Value Referen Units Interpr Notes Date tion ce etation Range Glucose 70 - 110 mg/dl High No Oct 11 [Mass/vol informati 2017 ume] in on in 11:15 AM Capillary source blood by data Glucomete r Comprehensive metabolic 2000 panel in Serum or Plasma Observa Value Referen Units Interpr Notes Date tion ce etation Range Albumin/G 1.1 - 1.8 No Normal No Oct 2 lobulin informati informati 2017 2:03 [Mass on in on in PM ratio] in source source Serum or data data Plasma Albumin 3.4 - 5.0 gm/dL Normal No Oct 2 [Mass/vol informati 2017 2:03 ume] in on in PM Serum or source Plasma data Alkaline 46 - 116 U/L High No Oct 2 phosphata informati 2017 2:03 se on in PM [Enzymati source c data activity/ volume] in Serum or Plasma Bilirubin 0.2 - 1.0 mg/dL Normal No Oct 2 .total informati 2017 2:03 [Mass/vol on in PM ume] in source Serum or data Plasma Urea 7 - 18 mg/dL Normal No Oct 2 nitrogen informati 2017 2:03 [Mass/vol on in PM ume] in source Serum or data Plasma Calcium 8.5 - mg/dL Normal No Oct 2 [Mass/vol 10.1 informati 2017 2:03 ume] in on in PM Serum or source Plasma data Chloride 98 - 107 mmoL/L Normal No Oct 2 [Moles/vo informati 2017 2:03 lume] in on in PM Serum or source Plasma data Carbon 21.0 - mmoL/L Normal No Oct 2 dioxide, 32.0 informati 2017 2:03 total on in PM [Moles/vo source lume] in data Serum or Plasma Creatinin 0.70 - mg/dL Normal No Oct 2 e 1.30 informati 2017 2:03 [Mass/vol on in PM ume] in source Serum or data Plasma Estimated >60 ML/MIN No REFERENCE Oct 2 informati RANGE: 2017 2:03 glomerula on in >60 PM r source ML/MIN/1. filtratio data 73 SQUARE n rate METERSIf (GF this patient is -A merican, then multiply theresult by 1.210. Globulin 1.3 - 3.2 gm/dL Normal No Dec 2 [Mass/vol informati 2016 2:03 ume] in on in PM Serum source data Glucose 74 - 106 mg/dL Normal No Dec 2 [Mass/vol informati 2016 2:03 ume] in on in PM Serum or source Plasma data Potassium 3.5 - 5.1 mmoL/L Normal No Dec 2 informati 2016 2:03 [Moles/vo on in PM lume] in source Serum or data Plasma Sodium 136 - 145 mmoL/L Normal No Dec 2 [Moles/vo informati 2016 2:03 lume] in on in PM Serum or source Plasma data Aspartate 15 - 37 U/L Low No Dec 2 informati 2016 2:03 aminotran on in PM sferase source [Enzymati data c activity/ volume] in Serum or Plasma Alanine 12 - 78 U/L Normal No Dec 2 aminotran informati 2016 2:03 sferase on in PM [Enzymati source c data activity/ volume] in Serum or Plasma Protein 6.4 - 8.2 gm/dL Normal No Dec 2 [Mass/vol informati 2016 2:03 ume] in on in PM Serum or source Plasma data CBC W Auto Differential panel in Blood Observa Value Referen Units Interpr Notes Date tion ce etation Range Granulocy 1.3 - 8.0 K/mm3 Normal No Dec 2 laurel informati 2016 2:03 [#/volume on in PM ] in source Blood by data Automated count Granulocy 37.0 - % Normal No Dec 2 laurel/100 80.0 informati 2016 2:03 leukocyte on in PM s in source Blood by data Automated count Hematocri 42.0 - % Normal No Dec 2 t [Volume 52.0 informati 2016 2:03 on in PM Fraction] source of Blood data Hemoglobi 14.1 - g/dL Normal No Dec 2 n 18.0 informati 2016 2:03 [Mass/vol on in PM ume] in source Blood data Lymphocyt 0.7 - 4.5 K/mm3 Normal No Dec 2 es informati 2016 2:03 [#/volume on in PM ] in source Unspecifi data ed specimen by Automated count Lymphocyt 10 - 50 % Normal No Dec 20 es informati 2016 2:03 [#/volume on in PM ] in source Unspecifi data ed specimen by Automated count Erythrocy 27 - 31.2 pg Normal No Dec 20 te mean informati 2016 2:03 corpuscul on in PM ar source hemoglobi data n [Entitic mass] Erythrocy 31.8 - g/dl Normal No Dec 20 te mean 35.4 informati 2016 2:03 corpuscul on in PM ar source hemoglobi data n concentra tion [Mass/vol ume] by Automated count Erythrocy 82.2 - fL Normal No Dec 20 te mean 97.8 informati 2016 2:03 corpuscul on in PM ar volume source [Entitic data volume] by Automated count Monocytes 0.1 - 1.0 K/mm3 Normal No Dec 20 informati 2016 2:03 [#/volume on in PM ] in source Blood by data Automated count Monocytes 1.7 - 9.3 % Normal No Dec 2 /100 informati 2017 2:03 leukocyte on in PM s in source Blood by data Automated count Platelets 142 - 424 K/mm3 Normal No Dec 2 informati 2016 2:03 [#/volume on in PM ] in source Blood data Erythrocy 4.6 - 6.2 M/mm3 Normal No Dec 2 laurel informati 2016 2:03 [#/volume on in PM ] in source Amniotic data fluid Erythrocy 11.5 - % Normal No Dec 20 te 17.5 informati 2016 2:03 distribut on in PM ion width source [Entitic data volume] by Automated count Leukocyte 4.8 - K/mm3 Normal No Dec 20 s 10.8 informati 2016 2:03 [#/volume on in PM ] in source Blood data Urea nitrogen [Mass/volume] in Serum or Plasma Observa Value Referen Units Interpr Notes Date tion ce etation Range Urea 7 - 18 mg/dL Normal No Nov 05 nitrogen informati 2016 8:28 [Mass/vol on in AM ume] in source Serum or data Plasma CREATININE Observa Value Referen Units Interpr Notes Date tion ce etation Range Creatinin 0.70 - mg/dL Normal No Nov 05 e 1.30 informati 2017 8:28 [Mass/vol on in AM ume] in source Serum or data Plasma Estimated >60 ML/MIN No REFERENCE Nov 05 informati RANGE: 2017 8:28 glomerula on in >60 AM r source ML/MIN/1. filtratio data 73 SQUARE n rate METERSIf (GF this patient is -A merican, then multiply theresult by 1.210. Glucose [Mass/volume] in Capillary blood by Glucometer Observa Value Referen Units Interpr Notes Date ti ce etation Range Glucose 70 - 110 mg/dl High No Sep 16 [Mass/vol informati 2016 6:06 ume] in on in AM Capillary source blood by data Glucomete r Glucose [Mass/volume] in Capillary blood by Glucometer Observa Value Referen Units Interpr Notes Date ti etation Range Glucose 70 - 110 mg/dl High No Sep 15 [Mass/vol informati 2016 8:30 ume] in on in PM Capillary source blood by data Glucomete r Glucose [Mass/volume] in Capillary blood by Glucometer Observa Value Referen Units Interpr Notes Date ti etation Range Glucose 70 - 110 mg/dl High No Sep 15 [Mass/vol alert informati 2016 4:40 ume] in on in PM Capillary source blood by data Glucomete r Glucose [Mass/volume] in Capillary blood by Glucometer Observa Value Referen Units Interpr Notes Date ti etation Range Glucose 70 - 110 mg/dl High No Sep 15 [Mass/vol alert informati 2016 ume] in on in 11:39 AM Capillary source blood by data Glucomete r Glucose [Mass/volume] in Capillary blood by Glucometer Observa Value Referen Units Interpr Notes Date ti etation Range Glucose 70 - 110 mg/dl High No Sep 15 [Mass/vol informati 2016 6:37 ume] in on in AM Capillary source blood by data Glucomete r CBC W Auto Differential panel in Blood Observa Value Referen Units Interpr Notes Date ti ce etation Range Basophils 0 - 0.2 K/MM3 Normal No Sep 15 informati 2016 6:30 [#/volume on in AM ] in source Blood by data Automated count Basophils 0.1 - 2.0 % Normal No Sep 15 /100 informati 2017 6:30 leukocyte on in AM s in source Blood by data Automated count Eosinophi 0.0 - 0.4 K/mm3 Normal No Sep 15 ls informati 2016 6:30 [#/volume on in AM ] in source Blood by data Automated count Eosinophi 0.1 - % Normal No Sep 15 ls/100 12.0 informati 2017 6:30 leukocyte on in AM s in source Blood by data Automated count Granulocy 1.3 - 8.0 K/mm3 High No Sep 15 laurel informati 2017 6:30 [#/volume on in AM ] in source Blood by data Automated count Granulocy 37.0 - % High No Sep 15 laurel/100 80.0 informati 2017 6:30 leukocyte on in AM s in source Blood by data Automated count Hematocri 42.0 - % Low No Sep 15 t [Volume 52.0 informati 2016 6:30 on in AM Fraction] source of Blood data Hemoglobi 14.1 - g/dL Low Sep 15 n 18.0 informati 2016 6:30 [Mass/vol on in AM ume] in source Blood data Lymphocyt 0.7 - 4.5 K/mm3 Normal No Sep 15 es informati 2016 6:30 [#/volume on in AM ] in source Unspecifi data ed specimen by Automated count Lymphocyt 10 - 50 % Low No Sep 15 es informati 2016 6:30 [#/volume on in AM ] in source Unspecifi data ed specimen by Automated count Erythrocy 27 - 31.2 pg Normal No Sep 15 te mean informati 2016 6:30 corpuscul on in AM ar source hemoglobi data n [Entitic mass] Erythrocy 31.8 - g/dl Normal No Sep 15 te mean 35.4 informati 2017 6:30 corpuscul on in AM ar source hemoglobi data n concentra tion [Mass/vol ume] by Automated count Erythrocy 82.2 - fl Normal Sep 15 te mean 97.8 informati 2016 6:30 corpuscul on in AM ar volume source [Entitic data volume] by Automated count Monocytes 0.1 - 1.0 K/mm3 Normal No Sep 15 informati 2017 6:30 [#/volume on in AM ] in source Blood by data Automated count Monocytes 1.7 - 9.3 % Normal No Sep 15 informati 2017 6:30 leukocyte on in AM s in source Blood by data Automated count Platelet 7.4 - fl Low No Sep 15 mean 10.4 informati 2017 6:30 volume on in AM [Entitic source volume] data in Blood by Automated count Platelets 142 - 424 K/mm3 High No Aug 28 informati 2017 6:30 [#/volume on in AM ] in source Blood data Erythrocy 4.6 - 6.2 M/mm3 Low No Sep 15 laurel informati 2017 6:30 [#/volume on in AM ] in source Amniotic data fluid Erythrocy 11.5 - % Normal No Sep 15 te 17.5 informati 2017 6:30 distribut on in AM ion width source [Entitic data volume] by Automated count Leukocyte 4.8 - K/MM3 High No Sep 15 s 10.8 alert informati 2017 6:30 [#/volume on in AM ] in source Blood data Differential panel, method unspecified - Observa Value Referen Units Interpr Notes Date tion ce etation Range Lymphocyt 0 - 5 % Normal No Sep 15 es informati 2017 6:30 Variant/1 on in AM 00 source leukocyte data s in Blood by Manual count Neutrophi 0 - 8 % Normal No Sep 15 ls.band informati 2017 6:30 form/100 on in AM leukocyte source s in data Blood by Automated count LYMPH 8 10 - 50 % Low No Sep 15 informa 2017 tion in 6:30 AM source data Monocytes 2 - 9 % Normal No Christiano 28 /100 informati 2017 6:30 leukocyte on in AM s in source Blood by data Automated count Platele MOD No No No No Sep 15 ts INCREAS informa informa informa informa 2017 [Presen E tion in tion in tion in tion in 6:30 AM ce] in source source source source Blood data data data data by Light microsc opy Neutrophi 42 - 76 % High No Sep 15 ls informati 2017 6:30 [#/volume on in AM ] in source Blood by data Automated count Cells No #CELLS No No Sep 15 Counted informati informati informati 2017 6:30 Total [#] on in on in on in AM in Blood source source source data data data Basic metabolic panel in Blood Observa Value Referen Units Interpr Notes Date tion ce etation Range Urea 7 - 18 mg/dL Normal No Sep 15 nitrogen informati 2017 6:30 [Mass/vol on in AM ume] in source Serum or data Plasma Calcium 8.5 - mg/dL Normal No Sep 15 [Mass/vol 10.1 informati 2016 6:30 ume] in on in AM Serum or source Plasma data Chloride 98 - 107 mmoL/L Normal No Sep 15 [Moles/vo informati 2016 6:30 lume] in on in AM Serum or source Plasma data Carbon 21.0 - mmoL/L High No Sep 15 dioxide, 32.0 informati 2016 6:30 total on in AM [Moles/vo source lume] in data Serum or Plasma Creatinin 0.70 - mg/dL Low No Sep 15 e 1.30 informati 2017 6:30 [Mass/vol on in AM ume] in source Serum or data Plasma Creatinin 50 - 200 ML/MIN Normal No Sep 15 e renal informati 2016 6:30 clearance on in AM source predicted data by Cockcroft -Gault formula Estimated >60 ML/MIN No REFERENCE Sep 15 informati RANGE: 2017 6:30 glomerula on in >60 AM r source ML/MIN/1. filtratio data 73 SQUARE n rate METERSIf (GF this patient is -A merican, then multiply theresult by 1.210. Glucose 74 - 106 mg/dL High No Sep 15 [Mass/vol informati 2016 6:30 ume] in on in AM Serum or source Plasma data Potassium 3.5 - 5.1 mmoL/L Normal No Sep 15 informati 2016 6:30 [Moles/vo on in AM lume] in source Serum or data Plasma Sodium 136 - 145 mmoL/L Normal No Sep 15 [Moles/vo informati 2016 6:30 lume] in on in AM Serum or source Plasma data Glucose [Mass/volume] in Capillary blood by Glucometer Observa Value Referen Units Interpr Notes Date tion ce etation Range Glucose 70 - 110 mg/dl High No Sep 14 [Mass/vol alert informati 2016 8:39 ume] in on in PM Capillary source blood by data Glucomete r Glucose [Mass/volume] in Capillary blood by Glucometer Observa Value Referen Units Interpr Notes Date tion ce etation Range Glucose 70 - 110 mg/dl High No Sep 14 [Mass/vol alert informati 2016 4:59 ume] in on in PM Capillary source blood by data Glucomete r Glucose [Mass/volume] in Capillary blood by Glucometer Observa Value Referen Units Interpr Notes Date tion ce etation Range Glucose 70 - 110 mg/dl High No Sep 14 [Mass/vol informati 2016 ume] in on in 12:14 PM Capillary source blood by data Glucomete r Fungal Ab panel in Serum Observa Value Referen Units Interpr Notes Date ti ce etation Range TEST RESULT REFERENCE ASPERGILLUS FUMIGATUS NEGATIVE NEG:<1:1 ASPERGILLUS FLAVUS NEGATIVE NEG:<1:1 ASPERGILLUS NIGER NEGATIVE NEG:<1:1 BLASTOMYCES ABS, QN, DID NEGATIVE NEG:<1:1 COCCIDIOIDES ABS, QN, DID DUE TO INDEFINITE BACKORDER OF REAGENTS FROM THE TEST BOOT TURNER, WE ARE UNABLE TO PERFORM THIS TEST. HISTOPLASMA ABS, QN, DID NEGATIVE NEG:<1:1 TESTS [place]MED [place] [address] TEST RESULT REFERENCE ASPERGILLUS FUMIGATUS NEGATIVE NEG:<1:1 ASPERGILLUS FLAVUS NEGATIVE NEG:<1:1 ASPERGILLUS NIGER NEGATIVE NEG:<1:1 BLASTOMYCES ABS, QN, DID NEGATIVE NEG:<1:1 COCCIDIOIDES ABS, QN, DID DUE TO INDEFINITE BACKORDER OF REAGENTS FROM THE TEST BOOT TURNER, WE ARE UNABLE TO PERFORM THIS TEST. HISTOPLASMA ABS, QN, DID NEGATIVE NEG:<1:1 TESTS [place]FORMED [place] [address] Basic metabolic panel in Blood Observa Value Referen Units Interpr Notes etation Range Urea 7 - 18 mg/dL Normal No Sep 14 nitrogen informati 2016 6:35 [Mass/vol on in AM ume] in source Serum or data Plasma Calcium 8.5 - mg/dL Normal No Sep 14 [Mass/vol 10.1 informati 2016 6:35 ume] in on in AM Serum or source Plasma data Chloride 98 - 107 mmoL/L Normal No Sep 14 [Moles/vo informati 2016 6:35 lume] in on in AM Serum or source Plasma data Carbon 21.0 - mmoL/L Normal No Sep 14 dioxide, 32.0 informati 2017 6:35 total on in AM [Moles/vo source lume] in data Serum or Plasma Creatinin 0.70 - mg/dL Normal No Sep 14 e 1.30 informati 2016 6:35 [Mass/vol on in AM ume] in source Serum or data Plasma Creatinin 50 - 200 ML/MIN Normal No Sep 14 e renal informati 2016 6:35 clearance on in AM source predicted data by Cockcroft -Gault formula Estimated >60 ML/MIN No REFERENCE Sep 14 informati RANGE: 2017 6:35 glomerula on in >60 AM r source ML/MIN/1. filtratio data 73 SQUARE n rate METERSIf (GF this patient is -A merican, then multiply theresult by 1.210. Glucose 74 - 106 mg/dL High No Sep 14 [Mass/vol informati 2016 6:35 ume] in on in AM Serum or source Plasma data Potassium 3.5 - 5.1 mmoL/L Normal No Sep 14 informati 2016 6:35 [Moles/vo on in AM lume] in source Serum or data Plasma Sodium 136 - 145 mmoL/L Normal No Sep 14 [Moles/vo informati 2016 6:35 lume] in on in AM Serum or source Plasma data CBC W Auto Differential panel in Blood Observa Value Referen Units Interpr Notes Date tion ce etation Range Basophils 0 - 0.2 K/MM3 Normal No Sep 14 informati 2016 6:35 [#/volume on in AM ] in source Blood by data Automated count Basophils 0.1 - 2.0 % Normal No Sep 14 / informati 2017 6:35 leukocyte on in AM s in source Blood by data Automated count Eosinophi 0.0 - 0.4 K/mm3 Normal No Sep 14 ls informati 2016 6:35 [#/volume on in AM ] in source Blood by data Automated count Eosinophi 0.1 - % Normal No Sep 14 ls/100 12.0 informati 2016 6:35 leukocyte on in AM s in source Blood by data Automated count Granulocy 1.3 - 8.0 K/mm3 Normal No Sep 14 laurel informati 2016 6:35 [#/volume on in AM ] in source Blood by data Automated count Granulocy 37.0 - % High No Sep 14 laurel/100 80.0 informati 2016 6:35 leukocyte on in AM s in source Blood by data Automated count Hematocri 42.0 - % Low No Sep 14 t [Volume 52.0 informati 2016 6:35 on in AM Fraction] source of Blood data Hemoglobi 14.1 - g/dL Low No Sep 14 n 18.0 informati 2017 6:35 [Mass/vol on in AM ume] in source Blood data Lymphocyt 0.7 - 4.5 K/mm3 Normal No Sep 14 es informati 2017 6:35 [#/volume on in AM ] in source Unspecifi data ed specimen by Automated count Lymphocyt 10 - 50 % Normal No Sep 14 es informati 2016 6:35 [#/volume on in AM ] in source Unspecifi data ed specimen by Automated count Erythrocy 27 - 31.2 pg Normal No Sep 14 te mean informati 2017 6:35 corpuscul on in AM ar source hemoglobi data n [Entitic mass] Erythrocy 31.8 - g/dl Normal No Sep 14 te mean 35.4 informati 2017 6:35 corpuscul on in AM ar source hemoglobi data n concentra tion [Mass/vol ume] by Automated count Erythrocy 82.2 - fl Normal No Sep 14 te mean 97.8 informati 2017 6:35 corpuscul on in AM ar volume source [Entitic data volume] by Automated count Monocytes 0.1 - 1.0 K/mm3 Normal No Sep 14 informati 2017 6:35 [#/volume on in AM ] in source Blood by data Automated count Monocytes 1.7 - 9.3 % Low No Sep 14 /100 informati 2017 6:35 leukocyte on in AM s in source Blood by data Automated count Platelet 7.4 - fl Low No Sep 14 mean 10.4 informati 2017 6:35 volume on in AM [Entitic source volume] data in Blood by Automated count Platelets 142 - 424 K/mm3 High No Sep 14 informati 2017 6:35 [#/volume on in AM ] in source Blood data Erythrocy 4.6 - 6.2 M/mm3 Normal No Sep 14 laurel informati 2017 6:35 [#/volume on in AM ] in source Amniotic data fluid Erythrocy 11.5 - % Normal No Sep 14 te 17.5 informati 2017 6:35 distribut on in AM ion width source [Entitic data volume] by Automated count Leukocyte 4.8 - K/MM3 No Sep 14 s 10.8 informati informati 2017 6:35 [#/volume on in on in AM ] in source source Blood data data Glucose [Mass/volume] in Capillary blood by Glucometer Observa Value Referen Units Interpr Notes Date tion ce etation Range Glucose 70 - 110 mg/dl High No Christiano 27 [Mass/vol informati 2017 6:28 ume] in on in AM Capillary source blood by data Glucomete r Lactate [Moles/volume] in Blood Observa Value Referen Units Interpr Notes Date tion ce etation Range Lactate 0.4 - 2.0 mmol/L Normal No Christiano 26 [Moles/vo informati 2017 9:25 lume] in on in PM Blood source data Gas panel in Arterial blood Observa Value Referen Units Interpr Notes Date tion ce etation Range Base -2.4-+2.3 MMOL/L High No Christiano 26 excess in informati 2017 7:01 Arterial on in PM blood source data Arteria ACCEPTA No No No No Christiano 26 l BLE informa informa informa informa 2017 patency tion in tion in tion in tion in 7:01 PM Wrist source source source source artery data data data data --pre arteria l punctur e Bicarbona 22.0 - MMOL/L High No Sep 13 te 26.0 informati 2017 7:01 [Moles/vo on in PM lume] in source Arterial data blood Oxygen No No No No Christiano 26 content informati informati informati informati 2017 7:01 in on in on in on in on in PM Arterial source source source source blood data data data data Carbon 35.0 - MMHG High No Sep 13 dioxide 45.0 informati 2017 7:01 [Partial on in PM pressure] source in data Arterial blood pH of 7.35 - MMOL/L Normal No Christiano 26 Arterial 7.45 informati 2017 7:01 blood on in PM source data Oxygen 80 - 100 MMHG Low No Christiano 26 [Partial informati 2017 7:01 pressure] on in PM in source Arterial data blood Oxygen 90 - 100 % Low alert No Christiano 26 saturatio informati 2017 7:01 n.calcula on in PM tomasz from source oxygen data partial pressure in Arterial blood Carbon 23 - 27 MMOL/L High No Christiano 26 dioxide, informati 2017 7:01 total on in PM [Moles/vo source lume] in data Arterial blood Urinalysis dipstick W Reflex Microscopic panel in Urine Observa Value Referen Units Interpr Notes Date tion ce etation Range Appeara CLEAR CLEAR No No No Christiano 26 nce of informa informa informa 2017 Urine tion in tion in tion in 4:55 PM source source source data data data Bacteri 2+ O No No No Sep 13 a informa informa informa 2016 [Presen tion in tion in tion in 4:55 PM ce] in source source source Urine data data data sedimen t by Light microsc opy Bilirub NEGATIV NEG No No No Sep 13 in E informa informa informa 2016 [Presen tion in tion in tion in 4:55 PM ce] in source source source Urine data data data by Test strip Erythro TRACE-I NEG No No No Sep 13 cytes NTACT informa informa informa 2016 [Presen tion in tion in tion in 4:55 PM ce] in source source source Urine data data data Color YELLOW YELLOW No No No Sep 13 of informa informa informa 2017 Urine tion in tion in tion in 4:55 PM source source source data data data Glucose NEG No No No Sep 13 [Mass/vol informati informati informati 2016 4:55 ume] in on in on in on in PM Urine by source source source Test data data data strip Hyaline OCC NONE #/lpf No No Sep 13 casts informa informa 2016 [Presen tion in tion in 4:55 PM ce] in source source Urine data data sedimen t by Light microsc opy Ketones NEGATIV NEG mg/dL No No Sep 13 E informa informa 2016 [Presen tion in tion in 4:55 PM ce] in source source Urine data data by Automat ed test strip Mucus NEGATIV NEG No No No Sep 13 [Presen E informa informa informa 2016 ce] in tion in tion in tion in 4:55 PM Urine source source source sedimen data data data t by Light microsc opy Mucus 1+ NONE No No No Sep 13 [Presen informa informa informa 2016 ce] in tion in tion in tion in 4:55 PM Urine source source source sedimen data data data t by Light microsc opy Nitrite NEGATIV NEG No No No Sep 13 E informa informa informa 2016 [Presen tion in tion in tion in 4:55 PM ce] in source source source Urine data data data by Test strip pH of 5.0 - 8.5 No Normal No Sep 13 Urine informati informati 2017 4:55 on in on in PM source source data data Protein NEG mg/dL No No Sep 13 [Mass/vol informati informati 2016 4:55 ume] in on in on in PM Urine by source source Automated data data test strip Erythro OCC 0 rbc/hpf No No Sep 13 cytes informa informa 2016 [Presen tion in tion in 4:55 PM ce] in source source Urine data data sedimen t by Light microsc opy Specific 1.005 - No Normal No Sep 13 gravity 1.030 informati informati 2016 4:55 of Urine on in on in PM source source data data Urobili 0.2 NEG E.U./dL No No Sep 13 nogen informa informa 2016 [Presen tion in tion in 4:55 PM ce] in source source Urine data data by Test strip Leukocyte O wbc/hpf No No Sep 13 s informati informati 2017 4:55 [#/volume on in on in PM ] in source source Urine data data Urinalysis dipstick W Reflex Microscopic panel in Urine Observa Value Referen Units Interpr Notes Date tion ce etation Range Appeara CLEAR CLEAR No No No Sep 13 nce of informa informa informa 2017 Urine tion in tion in tion in 4:55 PM source source source data data data Bilirub NEGATIV NEG No No No Sep 13 in E informa informa informa 2016 [Presen tion in tion in tion in 4:55 PM ce] in source source source Urine data data data by Test strip Erythro TRACE-I NEG No No No Sep 13 cytes NTACT informa informa informa 2016 [Presen tion in tion in tion in 4:55 PM ce] in source source source Urine data data data Color YELLOW YELLOW No No No Sep 13 of informa informa informa 2017 Urine tion in tion in tion in 4:55 PM source source source data data data Glucose NEG No No No Sep 13 [Mass/vol informati informati informati 2017 4:55 ume] in on in on in on in PM Urine by source source source Test data data data strip Ketones NEGATIV NEG mg/dL No No Sep 13 E informa informa 2016 [Presen tion in tion in 4:55 PM ce] in source source Urine data data by Automat ed test strip Mucus NEGATIV NEG No No No Sep 13 [Presen E informa informa informa 2016 ce] in tion in tion in tion in 4:55 PM Urine source source source sedimen data data data t by Light microsc opy Nitrite NEGATIV NEG No No No Sep 13 E informa informa informa 2016 [Presen tion in tion in tion in 4:55 PM ce] in source source source Urine data data data by Test strip pH of 5.0 - 8.5 No Normal No Sep 13 Urine informati informati 2016 4:55 on in on in PM source source data data Protein NEG mg/dL No No Sep 13 [Mass/vol informati informati 2016 4:55 ume] in on in on in PM Urine by source source Automated data data test strip Specific 1.005 - No Normal No Sep 13 gravity 1.030 informati informati 2016 4:55 of Urine on in on in PM source source data data Urobili 0.2 NEG E.U./dL No No Sep 13 nogen informa informa 2016 [Presen tion in tion in 4:55 PM ce] in source source Urine data data by Test strip Glucose [Mass/volume] in Capillary blood by Glucometer Observa Value Referen Units Interpr Notes Date ti ce etation Range Glucose 70 - 110 mg/dl High No Sep 13 [Mass/vol informati 2016 4:49 ume] in on in PM Capillary source blood by data Glucomete r Fibrin D-dimer FEU [Mass/volume] in Platelet poor plasma Observa Value Referen Units Interpr Notes Date ti ce etation Range Fibrin 0 - 400 ng/mL High Sep 13 D-dimer alert NOTIFICAT 2017 4:40 FEU ION PM [Mass/vol RESULT ume] in GOMEZ Platelet D OZZIE.DEK poor 09/13/16 plasma 191The D-Dimer values are presented in units of mass(ng/m L) ofD-Dimer units(DDU ).This test has been FDA approved as an aid in the assessmen tand evaluatio n of suspected DIC, and thromboem bolic eventsinc luding PE and DVT. However, it does not have approvalf or cut-off values for the exclusion of these condition s. Natriutietic peptide B [Mass/volume] in Serum or Plasma Observa Value Referen Units Interpr Notes Date tion ce etation Range Natriutie 0 - 100 pg/mL Normal No Sep 13 tic informati 2016 4:40 peptide B on in PM source [Mass/vol data ume] in Serum or Plasma CBC W Auto Differential panel in Blood Observa Value Referen Units Interpr Notes Date tion ce etation Range Basophils 0 - 0.2 K/MM3 Normal No Sep 13 informati 2016 4:40 [#/volume on in PM ] in source Blood by data Automated count Basophils 0.1 - 2.0 % Normal No Sep 13 /100 informati 2016 4:40 leukocyte on in PM s in source Blood by data Automated count Eosinophi 0.0 - 0.4 K/mm3 Normal No Sep 13 ls informati 2016 4:40 [#/volume on in PM ] in source Blood by data Automated count Eosinophi 0.1 - % Normal No Sep 13 ls/100 12.0 informati 2016 4:40 leukocyte on in PM s in source Blood by data Automated count Granulocy 1.3 - 8.0 K/mm3 Normal No Sep 13 laurel informati 2016 4:40 [#/volume on in PM ] in source Blood by data Automated count Granulocy 37.0 - % Normal No Sep 13 laurel/100 80.0 informati 2016 4:40 leukocyte on in PM s in source Blood by data Automated count Hematocri 42.0 - % Normal No Sep 13 t [Volume 52.0 informati 2016 4:40 on in PM Fraction] source of Blood data Hemoglobi 14.1 - g/dL Normal No Sep 13 n 18.0 informati 2016 4:40 [Mass/vol on in PM ume] in source Blood data Lymphocyt 0.7 - 4.5 K/mm3 Normal No Sep 13 es informati 2016 4:40 [#/volume on in PM ] in source Unspecifi data ed specimen by Automated count Lymphocyt 10 - 50 % Normal No Sep 13 es informati 2016 4:40 [#/volume on in PM ] in source Unspecifi data ed specimen by Automated count Erythrocy 27 - 31.2 pg Normal No Sep 13 te mean informati 2016 4:40 corpuscul on in PM ar source hemoglobi data n [Entitic mass] Erythrocy 31.8 - g/dl Normal No Sep 13 te mean 35.4 informati 2017 4:40 corpuscul on in PM ar source hemoglobi data n concentra tion [Mass/vol ume] by Automated count Erythrocy 82.2 - fl Normal No Sep 13 te mean 97.8 informati 2017 4:40 corpuscul on in PM ar volume source [Entitic data volume] by Automated count Monocytes 0.1 - 1.0 K/mm3 Normal No Sep 13 informati 2017 4:40 [#/volume on in PM ] in source Blood by data Automated count Monocytes 1.7 - 9.3 % Normal No Sep 13 /100 informati 2017 4:40 leukocyte on in PM s in source Blood by data Automated count Platelet 7.4 - fl Low No Sep 13 mean 10.4 informati 2017 4:40 volume on in PM [Entitic source volume] data in Blood by Automated count Platelets 142 - 424 K/mm3 High No Sep 13 informati 2017 4:40 [#/volume on in PM ] in source Blood data Erythrocy 4.6 - 6.2 M/mm3 Normal No Sep 13 laurel informati 2017 4:40 [#/volume on in PM ] in source Amniotic data fluid Erythrocy 11.5 - % Normal No Sep 13 te 17.5 informati 2017 4:40 distribut on in PM ion width source [Entitic data volume] by Automated count Leukocyte 4.8 - K/MM3 High No Sep 13 s 10.8 informati 2016 4:40 [#/volume on in PM ] in source Blood data
--- OUTSIDE RECORDS SUMMARY | 2017-02-21 12:59 | External Medical Summary Rpt ---
[...] INDEFINITE BACKORDER OF REAGENTS FROM THE TEST COMMUTATOR INSPECTOR, WE ARE UNABLE TO PERFORM THIS TEST. HISTOPLASMA ABS, QN, DID NEGATIVE NEG:<1:1 [place] [address] TEST RESULT REFERENCE ASPERGILLUS FUMIGATUS NEGATIVE NEG:<1:1 ASPERGILLUS FLAVUS NEGATIVE NEG:<1:1 ASPERGILLUS NIGER NEGATIVE NEG:<1:1 BLASTOMYCES ABS, QN, DID NEGATIVE NEG:<1:1 COCCIDIOIDES ABS, QN, DID DUE TO INDEFINITE BACKORDER OF REAGENTS FROM THE TEST COMMUTATOR INSPECTOR, WE ARE UNABLE TO PERFORM THIS TEST. HISTOPLASMA ABS, QN, DID NEGATIVE NEG:<1:1 [place] [address] Basic metabolic panel in Blood Observa Value [...] 90 - 100 % Low alert No Christiaon 26 saturatio informati 2017 7:01 n.calcula on [...]
--- NOTE | 2017-02-21 14:43 | Urgent Treatment Center Report ---
See Addendum History of Present Issue Date/Time Seen by Provider 02/21/17 1442 Visit Reason Pt arrived:Walked Presenting Problem:PT IS C/O SOA, CHEST CONGESTION, AND COUGH X3 DAYS Location if Accident: Onset of symptoms date/time:/ or onset unknown for:MEDICAL HX UNKNOWN Have you (or family members/close friends) recently traveled outside the [place]? N If Yes, where/when: Have you had exposure to infectious disease within the past month? TB? Other? Specify: c/o chest pain and SOA that he related to cough x 4-5 days. worse x 2-3 days w/ onset SOA and pain. Productive, yellow sputum. Hx COPD. Only on albuterol BID. Normal SPO2 92-95 per pt. Possible fever initially but not now. Pt doesn't feel like cardiac and really thinks this is his lungs because of the cough although cough unchanged. Pain left anterior chest, described as squeezing, radiating to sternum, unchanged with deep breaths or cough. Hasn't taken or tried anything for symptoms. Hx UT > 2 years ago. Hx CVA 2 years ago. As I was leaving the room, pt reports he was already seen at clinic by YURIY Reyes. She suggested ER evaluation. He wasn't sure why. Reports had 325mg ASA this morning Source patient Exam Limitations no limitations ALLERGIES Coded Allergies: No Known Allergies (12/29/16) Home Medications Active Scripts Metoprolol Tartrate (Lopressor) 25 MG PO BID #60 TAB Ref 5 Prov: 09/16/16 Reported Medications Atorvastatin Calcium 40 MG PO QHS #30 TAB Acetaminophen (Acetaminophen Extra Strength) 500 MG PO Q6HP PRN PAIN/FEVER Gabapentin 300 MG PO TID #90 CAPSULE Metformin HCl (Metformin) 500 MG PO BID #60 Bacillus Coagulans (Probiotic) 1 EACH PO DAILY ASPIRIN (Aspirin 325MG) 325 MG PO DAILY Ubidecarenone (Coq-10) 100 MG PO DAILY History Medical History General CAD? Yes Angina: No UT: No Hypertension? Yes Hyperlipidemia? Yes CHF? No DVT? No PE? No COPD? Yes Asthma? No Anemia? No GERD? No Gastric ulcers? No GI Bleed? No Hernia? Yes Thyroid Problems? No Hypothyroidism? No CVA? Yes Seizures? No Diabetes? Yes Insulin Dependent: No Insulin Pump: No Home FSBS? No Renal Insuffiency? No UTI? No Stones? No BPH? No GB Disease: No Nephritic Syndrome? No Asplenia? No Hepatitis? No Sickle Cell Disease? No Arthritis? No Migraines? No Cataracts? No Glaucoma? No MRSA? No HIV? No TB? No Anxiety? No Depression? Yes Cancer? No More? No Immunization HX DT/Tetanus 5-10 Years Ago Flu Refused Pneumonia Received In Past Surgical Hx Previous Surgery?Y R RENAL ARTERIAL STENOSIS INGUINAL HERNIA X2 BACK SX FINGER REATTACHMENT HERNIA REPAIR Family History Family HX Diabetes No CAD No Hypertension Yes Hyperlipidemia Yes Cancer Yes TB No Social History Smoking Hx Smoker: Current Every Day Smoker Tobacco: Yes Type Cigarettes Packs/day < 1 Pack Alcohol Alcohol: No Review of Systems All Other Systems Reviewed and Negative Constitutional see HPI ENT denies: ear pain, nose discharge, nose congestion, throat pain. Respiratory see HPI, wheezing ("maybe a little") Cardiovascular see HPI, denies edema, denies palpitations Gastrointestinal denies nausea, denies vomiting Musculoskeletal denies back pain Psychiatric/Neurological denies headache, denies other (dizziness) Physical Exam Vital Signs Vital Signs Date Time Temp Pulse Resp B/P Pulse O2 O2 Flow FiO2 Ox Delivery Rate 02/21 1400 97.8 76 20 139/73 93 General Appearance no apparent distress, mild SOA immediately noticed Ear, Nose, Throat normal pharynx, tip of nose cyanotic, pt reports "expected and hasn't changed " after procedure w/ Dr. lane to remove a lesion and not related Respiratory Status Yes: respiratory distress (mild SOA), trachea midline, chest symmetrical, non tender chest, non productive cough. No: use of accessory muscles, pain on inspiration, pain on expiration. Lung Sounds anterior: decreased breath sounds. posterior: decreased breath sounds. bilateral: decreased breath sounds. Cardiovascular regular rate/rhythm, no peripheral edema, no murmur Neurologic alert, oriented x 3 Mental status normal mood/affect Skin normal color (x/ tip nose (see ENT)), warm/dry Lymphatic no adenopathy Medical Decision Making LABS/Meds/Orders Pt receiving controlled substance in ED? No Results/Orders Current Medication Orders Sig/Fredy Start time Last Medication Dose Route Stop Time Status Admin Sodium Chloride 10 ML PRN PRN 02/21 1530 AC IV 02/22 1519 Albuterol/Ipratropium 3 ML ONCE ONE 02/21 1500 DC / INH 02/21 1501 1500 Methylprednisolone 125 MG ONCE ONE 02/21 1500 CAN Sodium Succinate IM 02/21 1501 Albuterol/Ipratropium 0 .STK-MED ONE 02/21 1457 DC INH Methylprednisolone 0 .STK-MED ONE 02/21 1456 DC Sodium Succinate .ROUTE Orders Procedure Date/time Status CARDIAC ENZYMES 02/21 1900 Active CARDIAC ENZYMES 02/21 1600 Active ELECTROCARDIOGRAM REQUEST 02/21 1520 Active PULSE OXIMETRY REQUEST 02/21 1520 Active IV SALINE LOCK 02/21 1520 Active OXYGEN PER NURSE 02/21 1520 Active TERRA COTTA ROOFER 02/21 1520 Active CBC WITH AUTO DIFF 02/21 152 Active BASIC METABOLIC PROFILE 02/21 1520 Active RT Aerosol Treatment, Provide 02/21 1515 Active RT REQUEST DUONEB 02/21 1452 Active XRAY/CT/US XRAY/CT/US XRAY chest XR interpretation by discussed w/radiologist (Dr. Elder) Xray Results hyperinflation, no acute findings Consult MD Physician Consult Consult/PCP Amy Kelsey APRN at [facility] Time Called 1455 Comments Spoke to Amy re: CXR. No PNA. Reports pt was sent to ER, not [facility], for chest pain workup due to squeezing chest pain, radiating to sternum associated w/ SOA. Wants pt transferred to ER. Progress [facility] Progress Notes 1 Date 02/21/17 Time 1459 Comment Report called to ER. 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 Dr. Ardon rvwd CXR. No pneumonia. Aware that Amy previously saw pt and directed him to ER, not [facility]. According to pt, he chose to be seen in [facility] rather than ER after speaking to registration. No room available for pt and will call once bed available. [facility] RNs to start cardiac orders in [place]. [facility] Progress Notes 2 Date 02/21/17 Time 1515 Comment pt's sister here. Updated. Aware of plan to transfer to ER. More comfortable with that as pt w/ hx UT and stroke in the past. [facility] Progress Notes 3 Date 02/21/17 Time 1521 Comment ER called to report room available. Pt taken to ER by Velma. EKG already taken to Dr. Ardon, IV started, labs were drawn, pt already had 325mg ASA this morning. Departure Departure Time of Disposition 1522 Disposition Still a Patient Clinical Impression Primary Impression: Anterior chest wall pain Secondary Impressions: History of UT (myocardial infarction), Shortness of breath Condition STABLE at 1523
--- NOTE | 2017-02-21 14:43 | Urgent Treatment Center Report ---
See Addendum History of Present Issue Date/Time Seen by Provider 02/21/17 1442 Visit Reason Pt arrived:Walked Presenting Problem:PT IS C/O SOA, CHEST CONGESTION, AND COUGH X3 DAYS Location if Accident: Onset of symptoms date/time:/ or onset unknown for:MEDICAL HX UNKNOWN Have you (or family members/close friends) recently traveled outside the [place]? N If Yes, where/when: Have you had exposure to infectious disease within the past month? TB? Other? Specify: c/o chest pain and SOA that he related to cough x 4-5 days. worse x 2-3 days w/ onset SOA and pain. Productive, yellow sputum. Hx COPD. Only on albuterol BID. Normal SPO2 92-95 per pt. Possible fever initially but not now. Pt doesn't feel like cardiac and really thinks this is his lungs because of the cough although cough unchanged. Pain left anterior chest, described as squeezing, radiating to sternum, unchanged with deep breaths or cough. Hasn't taken or tried anything for symptoms. Hx VT > 2 years ago. Hx CVA 2 years ago. As I was leaving the room, pt reports he was already seen at clinic by YURIY Reyes. She suggested ER evaluation. He wasn't sure why. Reports had 325mg ASA this morning Source patient Exam Limitations no limitations ALLERGIES Coded Allergies: No Known Allergies (12/29/16) Home Medications Active Scripts Metoprolol Tartrate (Lopressor) 25 MG PO BID #60 TAB Ref 5 Prov: 09/16/16 Reported Medications Atorvastatin Calcium 40 MG PO QHS #30 TAB Acetaminophen (Acetaminophen Extra Strength) 500 MG PO Q6HP PRN PAIN/FEVER Gabapentin 300 MG PO TID #90 CAPSULE Metformin HCl (Metformin) 500 MG PO BID #60 Bacillus Coagulans (Probiotic) 1 EACH PO DAILY ASPIRIN (Aspirin 325MG) 325 MG PO DAILY Ubidecarenone (Coq-10) 100 MG PO DAILY History Medical History General CAD? Yes Angina: No VT: No Hypertension? Yes Hyperlipidemia? Yes CHF? No DVT? No PE? No COPD? Yes Asthma? No Anemia? No GERD? No Gastric ulcers? No GI Bleed? No Hernia? Yes Thyroid Problems? No Hypothyroidism? No CVA? Yes Seizures? No Diabetes? Yes Insulin Dependent: No Insulin Pump: No Home FSBS? No Renal Insuffiency? No UTI? No Stones? No BPH? No GB Disease: No Nephritic Syndrome? No Asplenia? No Hepatitis? No Sickle Cell Disease? No Arthritis? No Migraines? No Cataracts? No Glaucoma? No MRSA? No HIV? No TB? No Anxiety? No Depression? Yes Cancer? No More? No Immunization HX DT/Tetanus 5-10 Years Ago Flu Refused Pneumonia Received In Past Surgical Hx Previous Surgery?Y R RENAL ARTERIAL STENOSIS INGUINAL HERNIA X2 BACK SX FINGER REATTACHMENT HERNIA REPAIR Family History Family HX Diabetes No CAD No Hypertension Yes Hyperlipidemia Yes Cancer Yes TB No Social History Smoking Hx Smoker: Current Every Day Smoker Tobacco: Yes Type Cigarettes Packs/day < 1 Pack Alcohol Alcohol: No Review of Systems All Other Systems Reviewed and Negative Constitutional see HPI ENT denies: ear pain, nose discharge, nose congestion, throat pain. Respiratory see HPI, wheezing ("maybe a little") Cardiovascular see HPI, denies edema, denies palpitations Gastrointestinal denies nausea, denies vomiting Musculoskeletal denies back pain Psychiatric/Neurological denies headache, denies other (dizziness) Physical Exam Vital Signs Vital Signs Date Time Temp Pulse Resp B/P Pulse O2 O2 Flow FiO2 Ox Delivery Rate 02/21 1400 97.8 76 20 139/73 93 General Appearance no apparent distress, mild SOA immediately noticed Ear, Nose, Throat normal pharynx, tip of nose cyanotic, pt reports "expected and hasn't changed " after procedure w/ Dr. lane to remove a lesion and not related Respiratory Status Yes: respiratory distress (mild SOA), trachea midline, chest symmetrical, non tender chest, non productive cough. No: use of accessory muscles, pain on inspiration, pain on expiration. Lung Sounds anterior: decreased breath sounds. posterior: decreased breath sounds. bilateral: decreased breath sounds. Cardiovascular regular rate/rhythm, no peripheral edema, no murmur Neurologic alert, oriented x 3 Mental status normal mood/affect Skin normal color (x/ tip nose (see ENT)), warm/dry Lymphatic no adenopathy Medical Decision Making LABS/Meds/Orders Pt receiving controlled substance in ED? No Results/Orders Current Medication Orders Sig/Fredy Start time Last Medication Dose Route Stop Time Status Admin Sodium Chloride 10 ML PRN PRN 02/21 1530 AC IV 02/22 1519 Albuterol/Ipratropium 3 ML ONCE ONE 02/21 1500 DC / INH 02/21 1501 1500 Methylprednisolone 125 MG ONCE ONE 02/21 1500 CAN Sodium Succinate IM 02/21 1501 Albuterol/Ipratropium 0 .STK-MED ONE 02/21 1457 DC INH Methylprednisolone 0 .STK-MED ONE 02/21 1456 DC Sodium Succinate .ROUTE Orders Procedure Date/time Status CARDIAC ENZYMES 02/21 1900 Active CARDIAC ENZYMES 02/21 1600 Active ELECTROCARDIOGRAM REQUEST 02/21 1520 Active PULSE OXIMETRY REQUEST 02/21 1520 Active IV SALINE LOCK 02/21 1520 Active OXYGEN PER NURSE 02/21 1520 Active ICT ACCOUNT MANAGER 02/21 1520 Active CBC WITH AUTO DIFF 02/21 152 Active BASIC METABOLIC PROFILE 02/21 1520 Active RT Aerosol Treatment, Provide 02/21 1515 Active RT REQUEST DUONEB 02/21 1452 Active XRAY/CT/US XRAY/CT/US XRAY chest XR interpretation by discussed w/radiologist (Dr. Elder) Xray Results hyperinflation, no acute findings Consult MD Physician Consult Consult/PCP Amy Kelsey APRN at [facility] Time Called 1455 Comments Spoke to Amy re: CXR. No PNA. Reports pt was sent to ER, not [facility], for chest pain workup due to squeezing chest pain, radiating to sternum associated w/ SOA. Wants pt transferred to ER. Progress [facility] Progress Notes 1 Date 02/21/17 Time 1459 Comment Report called to ER. Cecelia Marie AIRLINE SECURITY REPRESENTATIVE. Dr. Ardon rvwd CXR. No pneumonia. Aware that Amy previously saw pt and directed him to ER, not [facility]. According to pt, he chose to be seen in [facility] rather than ER after speaking to registration. No room available for pt and will call once bed available. [facility] RNs to start cardiac orders in [place]. [facility] Progress Notes 2 Date 02/21/17 Time 1515 Comment pt's sister here. Updated. Aware of plan to transfer to ER. More comfortable with that as pt w/ hx [place] and stroke in the past. [facility] Progress Notes 3 Date 02/21/17 Time 1521 Comment ER called to report room available. Pt taken to ER by Velma. EKG already taken to Dr. Ardon, IV started, labs were drawn, pt already had 325mg ASA this morning. Departure Departure Time of Disposition 1522 Disposition Still a Patient Clinical Impression Primary Impression: Anterior chest wall pain Secondary Impressions: History of [place] (myocardial infarction), Shortness of breath Condition STABLE at 1523
--- NOTE | 2017-02-21 15:04 | RADIOLOGY REPORT PS360 ---
CHEST(2 VIEWS-NOT PORTABLE) HISTORY: SOA/COUGH ORDERING PHYSICIAN: TONIA RAE APRN PATIENT AGE: 71 years COMPARISON: 09/15/2016 FINDINGS: The cardiomediastinal silhouette and pulmonary vascularity are within normal limits. Hyperinflation with attenuation of the peripheral pulmonary vessels consistent with COPD. Calcified granuloma right lower lobe.. No lobar consolidation or collapse No acute bony abnormalities. IMPRESSION: COPD. No change with no acute finding
[2017-02-21 16:22] LABS: LYMPH # 3.4 K/mm3 (0.7-4.5); LYMPH % 28.5 % (10-50)
[2017-02-21 16:33] LABS: HEMOGLOBIN 14.8 g/dL (14.1-18.0)
[2017-02-21] MEDS ORDERED: PREDNISONE 20MG20 MG PO (17:01)
[2017-02-21] MEDS ORDERED: KEFLEX 500MG.500 MG PO (17:01)
--- NOTE | 2017-02-21 17:06 | Emergency Room Report ---
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 N Clinical Suspician of Infection? N Mental Status: 1 - Regular (Normal Baseline) Sepsis Risk:Low Sepsis Risk Have you (or family members/close friends) recently traveled outside the [place]? N If Yes, where/when: Have you had exposure to infectious disease within the past month? N TB? Other? Specify: Source patient, RN notes reviewed, family, old records Exam Limitations no limitations Comment pt seen today at [facility] with copd excerbation and ccnp cough with no syncope or fever and no hemoptysis Cardiac Chest Pain Chest pain indicative of cardiac No Timing/Duration this evening Severity moderate ALLERGIES Coded Allergies: No Known Allergies (12/29/16) Home Medications Active Scripts Metoprolol Tartrate (Lopressor) 25 MG PO BID #60 TAB Ref 5 Prov: 09/16/16 Reported Medications Atorvastatin Calcium 40 MG PO QHS #30 TAB Acetaminophen (Acetaminophen Extra Strength) 500 MG PO Q6HP PRN PAIN/FEVER Gabapentin 300 MG PO TID #90 CAPSULE Metformin HCl (Metformin) 500 MG PO BID #60 Bacillus Coagulans (Probiotic) 1 EACH PO DAILY ASPIRIN (Aspirin 325MG) 325 MG PO DAILY Ubidecarenone (Coq-10) 100 MG PO DAILY History Medical History General CAD? Yes Angina: No RI: No Hypertension? Yes Hyperlipidemia? Yes CHF? No DVT? No PE? No COPD? Yes Asthma? No Anemia? No GERD? No Gastric ulcers? No GI Bleed? No Hernia? Yes Thyroid Problems? No Hypothyroidism? No CVA? Yes Seizures? No Diabetes? Yes Insulin Dependent: No Insulin Pump: No Home FSBS? No Renal Insuffiency? No End Stage Renal Disease? No UTI? No Stones? No BPH? No GB Disease: No Nephritic Syndrome? No Asplenia? No Hepatitis? No Sickle Cell Disease? No Arthritis? No Migraines? No Cataracts? No Glaucoma? No MRSA? No HIV? No TB? No Anxiety? No Depression? Yes Cancer? No More? No Immunization Hx DT/Tetanus 5-10 Years Ago Flu Refused Pneumonia Received In Past Surgical Hx Previous Surgery?Y R RENAL ARTERIAL STENOSIS INGUINAL HERNIA X2 BACK SX FINGER REATTACHMENT HERNIA REPAIR Family History Family Hx Diabetes No CAD No Hypertension Yes Hyperlipidemia Yes Cancer Yes TB No Social History Smoking Hx Smoker: Current Every Day Smoker Tobacco: Yes Type Cigarettes Packs/day < 1 Pack Alcohol Alcohol: No Drugs none Review of Systems All Other Systems Reviewed and Negative Constitutional denies fever Eyes denies drainage ENT denies: ear discharge, epistaxis, throat pain. Respiratory cough, shortness of breath, denies wheezing Cardiovascular denies chest pain, denies palpitations, denies syncope Gastrointestinal denies abdominal pain, denies diarrhea, denies vomiting Genitourinary denies: dysuria, frequency, hesitancy. Musculoskeletal denies back pain, denies joint pain, denies neck pain Skin denies rash Psychiatric/Neurological denies headache, denies seizure Physical Exam Vital Signs Vital Signs Date Time Temp Pulse Resp B/P Pulse O2 O2 Flow FiO2 Ox Delivery Rate 02/21 1619 97.8 76 20 139/73 93 / 1400 97.8 76 20 139/73 93 - WBC >12,000 or <4,000 or 10% bands? 2 or more SIRS Criteria Met? B/P:139/73 MAP:95 Creatinine >2.0? UA output<0.5ml/kg/hr for 2 hrs? Platelet count >100,000? Lactate >2.0mmol/1? INR >1.2 or PTT > than 60 sec? Evidence of Organ Dysfunction? Provider documented clinical suspician of infection? N Sepsis Criteria Count: 1 Sepsis Risk: Low Sepsis Risk General Appearance no apparent distress Eye Exam - bilateral eye PERRL, bilateral eye EOMI Ear, Nose, Throat normal ENT inspection Neck supple Respiratory Status No: respiratory distress. Lung Sounds bilateral: decreased breath sounds, rhonchi. Cardiovascular regular rate/rhythm, systolic murmur Peripheral Pulses Pulses normal Yes Gastrointestinal soft Extremities normal inspection Strength 4 Upper Ext (L), 4 Upper Ext (R), 4 Lower Ext (L), 4 Lower Ext (R) Neurologic alert, food consultant II-XII nml as tested, no motor/sensory deficits Reflexes Reflexes normal No Mental status normal mood/affect Skin intact Medical Decision Making LABS/Meds/Orders Pt receiving controlled substance in ED? No Results/Orders Laboratory Tests 02/21/17 1509: Creatine Kinase 63, CK-MB (CK-2) Rel Index 1.1, CK and CKMB Interp 0.7, Troponin I < 0.02 02/21/17 1509: Sodium 143, Potassium 3.8, Chloride 103, Carbon Dioxide 32, BUN 13, Creatinine 0.8, Estimated Creat Clear 73, Estimated GFR (MDRD) 96, Glucose 156 H, Calcium 9.1, WBC 11.9 H, RBC 5.05, Hgb 14.8, Hct 44.9, MCV 88.9, RDW 13.9, Plt Count 325, MPV 8.3, Gran % 60.2, Gran # 7.2, Lymphocytes % 28.5, Monocytes % 7.0, Eosinophils % 3.5, Basophils % 0.8, Lymphocytes # 3.4, Monocytes # 0.8, Eosinophils # 0.4, Basophils # 0.1, PUBS MCHC 33.1, MCH 29.4 Current Medication Orders Sig/Fredy Start time Last Medication Dose Route Stop Time Status Admin Sodium Chloride 10 ML PRN PRN 02/21 1530 AC IV 02/22 1519 Albuterol/Ipratropium 3 ML ONCE ONE 02/21 1500 DC 02/21 INH 02/21 1501 1500 Methylprednisolone 125 MG ONCE ONE 02/21 1500 CAN Sodium Succinate IM 02/21 1501 Albuterol/Ipratropium 0 .STK-MED ONE 02/21 1457 DC INH Methylprednisolone 0 .STK-MED ONE 02/21 1456 DC Sodium Succinate .ROUTE Orders Procedure Date/time Status CARDIAC ENZYMES 02/21 1900 Active CARDIAC ENZYMES 02/21 1600 Complete ELECTROCARDIOGRAM REQUEST 02/21 1520 Active PULSE OXIMETRY REQUEST 02/21 1520 Active IV SALINE LOCK 02/21 1520 Active CBC WITH AUTO DIFF 02/21 1520 Complete BASIC METABOLIC PROFILE 02/21 1520 Complete RT Aerosol Treatment, Provide 02/21 1515 Active RT REQUEST DUONEB 02/21 1452 Active 12 LEAD EKG-REYNOLD (INITIAL) 02/21 UNK Active 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 ST/Twave chgs XRAY/CT/US XRAY/CT/US XRAY chest XR interpretation by reviewed by me Xray Results abnormal (copd) Departure Departure Time of Disposition 165 Disposition DC Home or Self Care(routine) Clinical Impression Primary Impression: Anterior chest wall pain Secondary Impressions: COPD (chronic obstructive pulmonary disease) with acute bronchitis, History of RI (myocardial infarction), Shortness of breath Condition STABLE Referrals Ellie Chan MD (Family) Patient Instructions DI for Chronic Obstructive Pulmonary Disease Additional Instructions use meds and see pcp for follow up Discharge Counseling Counseled pt/family regarding diagnosis, test results, medications/RX, follow up needs Prescriptions Current Visit Scripts CEPHALEXIN (Keflex 500MG Capsule) 500 MG PO Q8H #21 CAP Prednisone (Prednisone 20MG) 20 MG PO BID #10 TAB ED Critical Care Critical Care No at 1705
--- NOTE | 2017-02-21 17:06 | Emergency Room Report ---
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 N Clinical Suspician of Infection? N Mental Status: 1 - Regular (Normal Baseline) Sepsis Risk:Low Sepsis Risk Have you (or family members/close friends) recently traveled outside the [place]? N If Yes, where/when: Have you had exposure to infectious disease within the past month? N TB? Other? 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 and no hemoptysis Cardiac Chest Pain Chest pain indicative of cardiac No Timing/Duration this evening Severity moderate ALLERGIES Coded Allergies: No Known Allergies (12/29/16) Home Medications Active Scripts Metoprolol Tartrate (Lopressor) 25 MG PO BID #60 TAB Ref 5 Prov: 09/16/16 Reported Medications Atorvastatin Calcium 40 MG PO QHS #30 TAB Acetaminophen (Acetaminophen Extra Strength) 500 MG PO Q6HP PRN PAIN/FEVER Gabapentin 300 MG PO TID #90 CAPSULE Metformin HCl (Metformin) 500 MG PO BID #60 Bacillus Coagulans (Probiotic) 1 EACH PO DAILY ASPIRIN (Aspirin 325MG) 325 MG PO DAILY Ubidecarenone (Coq-10) 100 MG PO DAILY History Medical History General CAD? Yes Angina: No MT: No Hypertension? Yes Hyperlipidemia? Yes CHF? No DVT? No PE? No COPD? Yes Asthma? No Anemia? No GERD? No Gastric ulcers? No GI Bleed? No Hernia? Yes Thyroid Problems? No Hypothyroidism? No CVA? Yes Seizures? No Diabetes? Yes Insulin Dependent: No Insulin Pump: No Home FSBS? No Renal Insuffiency? No End Stage Renal Disease? No UTI? No Stones? No BPH? No GB Disease: No Nephritic Syndrome? No Asplenia? No Hepatitis? No Sickle Cell Disease? No Arthritis? No Migraines? No Cataracts? No Glaucoma? No MRSA? No HIV? No TB? No Anxiety? No Depression? Yes Cancer? No More? No Immunization Hx DT/Tetanus 5-10 Years Ago Flu Refused Pneumonia Received In Past Surgical Hx Previous Surgery?Y R RENAL ARTERIAL STENOSIS INGUINAL HERNIA X2 BACK SX FINGER REATTACHMENT HERNIA REPAIR Family History Family Hx Diabetes No CAD No Hypertension Yes Hyperlipidemia Yes Cancer Yes TB No Social History Smoking Hx Smoker: Current Every Day Smoker Tobacco: Yes Type Cigarettes Packs/day < 1 Pack Alcohol Alcohol: No Drugs none Review of Systems All Other Systems Reviewed and Negative Constitutional denies fever Eyes denies drainage ENT denies: ear discharge, epistaxis, throat pain. Respiratory cough, shortness of breath, denies wheezing Cardiovascular denies chest pain, denies palpitations, denies syncope Gastrointestinal denies abdominal pain, denies diarrhea, denies vomiting Genitourinary denies: dysuria, frequency, hesitancy. Musculoskeletal denies back pain, denies joint pain, denies neck pain Skin denies rash Psychiatric/Neurological denies headache, denies seizure Physical Exam Vital Signs Vital Signs Date Time Temp Pulse Resp B/P Pulse O2 O2 Flow FiO2 Ox Delivery Rate 02/21 1619 97.8 76 20 139/73 93 / 1400 97.8 76 20 139/73 93 - WBC >12,000 or <4,000 or 10% bands? 2 or more SIRS Criteria Met? B/P:139/73 MAP:95 Creatinine >2.0? UA output<0.5ml/kg/hr for 2 hrs? Platelet count >100,000? Lactate >2.0mmol/1? INR >1.2 or PTT > than 60 sec? Evidence of Organ Dysfunction? Provider documented clinical suspician of infection? N Sepsis Criteria Count: 1 Sepsis Risk: Low Sepsis Risk General Appearance no apparent distress Eye Exam - bilateral eye PERRL, bilateral eye EOMI Ear, Nose, Throat normal ENT inspection Neck supple Respiratory Status No: respiratory distress. Lung Sounds bilateral: decreased breath sounds, rhonchi. Cardiovascular regular rate/rhythm, systolic murmur Peripheral Pulses Pulses normal Yes Gastrointestinal soft Extremities normal inspection Strength 4 Upper Ext (L), 4 Upper Ext (R), 4 Lower Ext (L), 4 Lower Ext (R) Neurologic alert, community integration specialist II-XII nml as tested, no motor/sensory deficits Reflexes Reflexes normal No Mental status normal mood/affect Skin intact Medical Decision Making LABS/Meds/Orders Pt receiving controlled substance in ED? No Results/Orders Laboratory Tests 02/21/17 1509: Creatine Kinase 63, CK-MB (CK-2) Rel Index 1.1, CK and CKMB Interp 0.7, Troponin I < 0.02 02/21/17 1509: Sodium 143, Potassium 3.8, Chloride 103, Carbon Dioxide 32, BUN 13, Creatinine 0.8, Estimated Creat Clear 73, Estimated GFR (MDRD) 96, Glucose 156 H, Calcium 9.1, WBC 11.9 H, RBC 5.05, Hgb 14.8, Hct 44.9, MCV 88.9, RDW 13.9, Plt Count 325, MPV 8.3, Gran % 60.2, Gran # 7.2, Lymphocytes % 28.5, Monocytes % 7.0, Eosinophils % 3.5, Basophils % 0.8, Lymphocytes # 3.4, Monocytes # 0.8, Eosinophils # 0.4, Basophils # 0.1, PUBS MCHC 33.1, MCH 29.4 Current Medication Orders Sig/Fredy Start time Last Medication Dose Route Stop Time Status Admin Sodium Chloride 10 ML PRN PRN 02/21 1530 AC IV 02/22 1519 Albuterol/Ipratropium 3 ML ONCE ONE 02/21 1500 DC 02/21 INH 02/21 1501 1500 Methylprednisolone 125 MG ONCE ONE 02/21 1500 CAN Sodium Succinate IM 02/21 1501 Albuterol/Ipratropium 0 .STK-MED ONE 02/21 1457 DC INH Methylprednisolone 0 .STK-MED ONE 02/21 1456 DC Sodium Succinate .ROUTE Orders Procedure Date/time Status CARDIAC ENZYMES 02/21 1900 Active CARDIAC ENZYMES 02/21 1600 Complete ELECTROCARDIOGRAM REQUEST 02/21 1520 Active PULSE OXIMETRY REQUEST 02/21 1520 Active IV SALINE LOCK 02/21 1520 Active CBC WITH AUTO DIFF 02/21 1520 Complete BASIC METABOLIC PROFILE 02/21 1520 Complete RT Aerosol Treatment, Provide 02/21 1515 Active RT REQUEST DUONEB 02/21 1452 Active 12 LEAD EKG-REYNOLD (INITIAL) 02/21 UNK Active CM/EKG CM/service provider Rhythm Normal Sinus Rhythm EKG non-spec. ST/Twave chgs XRAY/CT/US XRAY/CT/US XRAY chest XR interpretation by reviewed by me Xray Results abnormal (copd) Departure Departure Time of Disposition 165 Disposition DC Home or Self Care(routine) Clinical Impression Primary Impression: Anterior chest wall pain Secondary Impressions: COPD (chronic obstructive pulmonary disease) with acute bronchitis, History of MT (myocardial infarction), Shortness of breath Condition STABLE Referrals Ellie Chan MD (Family) Patient Instructions DI for Chronic Obstructive Pulmonary Disease Additional Instructions use meds and see pcp for follow up Discharge Counseling Counseled pt/family regarding diagnosis, test results, medications/RX, follow up needs Prescriptions Current Visit Scripts CEPHALEXIN (Keflex 500MG Capsule) 500 MG PO Q8H #21 CAP Prednisone (Prednisone 20MG) 20 MG PO BID #10 TAB ED Critical Care Critical Care No at 1705
[2017-02-21 17:08] VITALS: BP 139/73
[2017-03-01] MEDS ORDERED: NORVASC 5MG. TAB5 MG PO (13:26)
[2017-03-01] MEDS ORDERED: ALBUTEROL2.5 MG/NEB INH (13:27)
[2017-03-01] MEDS ORDERED: OMEPRAZOLE40 MG PO (13:28)
[2017-03-01] MEDS ORDERED: MUPIROCIN2% NS (13:29)
[2017-03-01] MEDS ORDERED: BENZONATATE200 MG PO (13:30)
[2017-03-01] MEDS ORDERED: ANORO ELLIPTA1 POW IH (13:31)
[2017-03-11] MEDS ORDERED: PREDNISONE20 MG PO (09:17)
[2017-03-11] MEDS ORDERED: HYDROXYZINE 25M25 MG PO (09:18)
[2017-03-11] MEDS ORDERED: SUNMARK NI21 MG/24 H TD (09:19)
== END 2017-02-21 17:09 | disposition home or self-care (01) ==
LOC: UTC 12:46 → ER 12:50 → UTC 12:50 → ER 17:09
PROVIDERS: Nurse Practitioner Family
DX: R07.89 Other chest pain (principal); J44.9 Chronic obstructive pulmonary disease, unspecified; I10 Essential (primary) hypertension; E78.5 Hyperlipidemia, unspecified; F17.210 Nicotine dependence, cigarettes, uncomplicated; I25.2 Old myocardial infarction